=== PATIENT | female | born 1985 | race Caucasian/White ===

== ENCOUNTER 2021-05-29 12:04 | Outpatient (CLI) | payer BC, SELFPAY ==
--- NOTE | ~2021-05-29 | US_ITS ---
US OB BPP wo non-stress DATE: 05/29/2021 12:37 INDICATION: Nonreactive nonstress test in the office TECHNIQUE: Real-time imaging and Doppler analysis COMPARISON: None FINDINGS: Live liao intrauterine gestation, fetus in vertex presentation, longitudinal lie. Feta l heart rate of 152 bpm. Fundal placenta. Subjectively normal amount of amniotic fluid. BIOPHYSICAL PROFILE reported by safe technician: breathin out of 2 movement: 2 out of 2 tone: 2 out of 2 Amniotic fluid pocket: 2 out of 2 Total score: 8 out of 8 IMPRESSION: Normal biophysical profile score of 8 out of 8 Reviewed, dictated and finalized at [facility]. Reviewed, dictated and finalized at location A.
--- NOTE | 2021-05-29 12:39 | PC.NURSE ---
Called Dr. Yuan with BPP results. February D/C home.
== END 2021-05-29 12:40 | disposition home or self-care (01) ==
LOC: ANHOBOP 12:08 → ANHLDR 12:08
PROVIDERS: Visit Provider Obstetrics & Gynecology Gynecology
DX: O36.8990 Maternal care for other specified fetal problems, unspecified trimester, not applicable or unspecified (principal); Z3A.00 Weeks of gestation of pregnancy not specified
CPT/HCPCS: 76819; 99199

== ENCOUNTER 2021-06-04 05:00 | Inpatient (IN) | payer BC, SELFPAY ==
[2021-06-04] VITALS (93 sets, daily range): BP systolic 92–132; BP diastolic 38–81; PULSE 56–117; RESP 18; TEMP 36.1–36.7; O2SAT 91–100; BMI 24.5
[2021-06-04] MEDS: LACTATED RINGERS 1,000 ML 125 ML IV CONT ×2 (05:54→09:22)
[2021-06-04] MEDS: OXYTOCIN 30 UNITS/NS 500 ML 30 UNITS/500 ML BAG IV CONT (05:55)
[2021-06-04 06:06] LABS: Basophils Absolute Auto 0.1 K/mm3 (0.0-0.1); Basophils Percent Auto 0.6 % (0.2-1.2); Eosinophils Absolute Auto 0.2 K/mm3 (0-0.3); Eosinophils Percent Auto 2.5 % (0-4.4); Hematocrit 35.4 % (37.0-47.0); Hemoglobin 11.4 g/dL (12.0-15.0); Immature Granulocyte Absolute 0.06 K/mm3 (0.00-0.031); Immature Granulocyte Percent A 0.6 % (0-0.5); Lymphocytes Absolute Auto 0.98 K/mm3 (0.9-3.2); Lymphocytes Percent Auto 10.5 % (18.3-44.2); Mean Corpuscular HGB Conc 32.2 g/dl (32-36); Mean Corpuscular Hemoglobin 28.1 pg (26-34); Mean Corpuscular Volume 87.4 fl (80-100); Mean Platelet Volume 9.9 fl (7.4-10.4); Monocytes Absolute Auto 0.7 K/mm3 (0.1-0.6); Monocytes Percent Auto 7.1 % (2.6-8.5); Neutrophils Absolute Auto 7.4 K/mm3 (1.3-6.7); Neutrophils Percent Auto 78.7 % (45.5-73.1); Platelet Count Result 279 k/mm3 (150-375); Red Blood Count 4.05 M/mm3 (4.2-5.4); Red Cell Distribution Width 13.8 % (11.5-14.5); White Blood Count 9.3 K/mm3 (4.5-10.0)
--- NOTE | 2021-06-04 08:23 | WPDOBADMIT ---
Obstetrics - Admit Note Admission Note: record reviewed. No pertinent additions to the history and/or any subsequent changes in the physical findings that are not consistent with the expected course of the were found. Additions to the history and/or subsequent changes in the physical findings follow. Here for MIL. Cervix 3-4/50/-2 AROM with clear fluid. FHTs reactive. Continue pitocin
[2021-06-04 08:36] LABS: Rapid Plasma Reagin Non-Reactive (NonReactive)
--- NOTE | 2021-06-04 08:55 | WPDANESEPPF ---
Anes - Initial Pre Proc Eval Date/Time: 06/04/21 08:55 Surgeon: Vianney Yuan MD Pre Op Diagnosis: Induction of Labor Patient Data Age: 36 Gender: F Height: 1.63 m Weight: 65 kg Last Vital Signs Pulse 67 06/04/21 08:46 BP 118/70 06/04/21 08:46 Allergies Allergy/AdvReac Type Severity Reaction Status Date / Time Sulfa (Sulfonamide Allergy Unknown RASH Verified 03/10/19 14:07 Antibiotics) Home Medications Medication Instructions Recorded Confirmed Type PNV cmb#95-ferrous fumarate-FA 1 tablet PO DAILY 05/10/21 05/10/21 History [] ustekinumab [Stelara] See Rx Instructions .ROUTE .COMPLEX 05/10/21 05/10/21 History valacyclovir [Valtrex] 500 mg PO DAILY 05/10/21 05/10/21 History Laboratory Tests 06/04/21 06/04/21 06/04/21 05:47 05:47 05:47 WBC 9.3 K/mm3 K/mm3 (4.5-10.0) RBC 4.05 M/mm3 L M/mm3 (4.2-5.4) Hgb 11.4 g/dL L g/dL (12.0-15.0) Hct 35.4 % L % (37.0-47.0) MCV 87.4 fl fl (80-100) MCH 28.1 pg pg (26-34) MCHC 32.2 g/dl g/dl (32-36) RDW 13.8 % % (11.5-14.5) Plt Count 279 k/mm3 k/mm3 (150-375) MPV 9.9 fl fl (7.4-10.4) Immature Gran % (Auto) 0.6 % H % (0-0.5) Neut % (Auto) 78.7 % H % (45.5-73.1) Lymph % (Auto) 10.5 % L % (18.3-44.2) [place] % (Auto) 7.1 % % (2.6-8.5) Eos % (Auto) 2.5 % % (0-4.4) Baso % (Auto) 0.6 % % (0.2-1.2) Lymph # (Auto) 0.98 K/mm3 K/mm3 (0.9-3.2) [place] # (Auto) 0.7 K/mm3 H K/mm3 (0.1-0.6) Eos # (Auto) 0.2 K/mm3 K/mm3 (0-0.3) Baso # (Auto) 0.1 K/mm3 K/mm3 (0.0-0.1) Abs Immat Gran (auto) 0.06 K/mm3 H K/mm3 (0.00-0.031) Absolute Neuts (auto) 7.4 K/mm3 H K/mm3 (1.3-6.7) Absolute Nucleated RBC 0.0 K/mm3 K/mm3 (0.0-0.012) Nucleated RBC % 0.0 % % (0.0-0.2) RPR Non-reactive (NonReactive) Blood Type O Positive Antibody Screen Negative Patient hx anesthesia problems: none Family hx anesthesia problems: none [facility] Family History Family History (Updated 05/10/21 @ 15:32 by Valarie James RN) Sibling Hypothyroidism Mother Hypothyroidism Social History Social History Smoking status: Never smoker Substance use: never Gender identity (if verbalized by the patient): Female Spiritual care concerns: No Anes - Eval Final PreProcedure Day of Procedure 06/04/21 08:55 Patient weight: overweight Heart: regular rate and rhythm Lungs: clear to auscultation and normal air movement Airway: Mallampati scale class II Neurological: alert and oriented Last oral intake: >/= 8 hours ASA classification: II Emergent: no Anesthetic plan: proceed Anesthesia type and monitoring: regional epidural Informed Consent: The patient's anesthetic plan and its attendant risks and benefits were discussed with the patient/family/POA. Questions were solicited and answers provided to the satisfaction of the patient/family/POA.
--- NOTE | 2021-06-04 12:45 | PM.OBPRVD ---
OB - Delivery Note Procedure Delivery date: 06/04/21 Procedure: per Dr. John events: Labor Induction Intrapartal events: None Induction method: AROM and per pitocin protocol Delivery monitor: external FHT and external uterine Route of delivery: Laceration Description: Vaginal - 2nd Degree (Kwabena repaired) Delivery repair: vicryl (3-0) Specimen: No Quantitative Blood Loss (ml): 80 Anesthesia type: Epidural Disposition: floor Baby Date of : 06/04/21 Weeks of gestation at delivery: 39 presentation: vertex Placenta delivery description: Spontaneous (per Kwabena) cord vessel description: 3 Vessels score one minute: 8 score five minutes: 9
--- NOTE | 2021-06-04 12:47 | PM.OBDSVD ---
DS: Admitting Diagnosis Admitting Diagnosis 39 1/7 weeks MIL DS: Discharge Diagnosis Discharge Diagnosis (1) 39 weeks gestation of : Code(s): Z3A.39 - 39 weeks gestation of Status: Acute (2) (normal spontaneous vaginal delivery): Code(s): O80 - Encounter for full-term uncomplicated delivery Status: Acute OB - DS: Summary OB Procedures : Ultrasound OB Procedures Intrapartum: Spontaneous Vag Delivery OB Procedures: : None Peripartum Data Delivery Method: Natural Vaginal Laceration Description: Vaginal - 2nd Degree complications: none Status at Discharge Functional status at discharge: independent ambulation Overall status at discharge: patient is progressing back to baseline Time Spent with Patient Time attestation: Total time spent providing and/or coordinating discharge services: DS: Data Data Completed and Pending Labs on day of discharge: Labs from last 24 hours 06/04/21 06/04/21 06/04/21 05:47 05:47 05:47 WBC 9.3 RBC 4.05 L Hgb 11.4 L Hct 35.4 L MCV 87.4 MCH 28.1 MCHC 32.2 RDW 13.8 Plt Count 279 MPV 9.9 Immature Gran % (Auto) 0.6 H Neut % (Auto) 78.7 H Lymph % (Auto) 10.5 L [place] % (Auto) 7.1 Eos % (Auto) 2.5 Baso % (Auto) 0.6 Lymph # (Auto) 0.98 [place] # (Auto) 0.7 H Eos # (Auto) 0.2 Baso # (Auto) 0.1 Abs Immat Gran (auto) 0.06 H Absolute Neuts (auto) 7.4 H Absolute Nucleated RBC 0.0 Nucleated RBC % 0.0 RPR Non-reactive Blood Type O Positive Antibody Screen Negative Discharge Plan Discharge Attending physician on discharge: Vianney Yuan Discharging Clinician: Vianney Yuan Anticipated Discharge Date/Time: 06/06/21 12:48 Patient Disposition: Home, Self-Care Activity: may shower and pelvic rest Diet: regular Patient Instructions: Antibiotic Form Stand Alone Forms: General Discharge Information Follow-up/Referrals: Vianney Yuan MD [Physician] - 6 Weeks Discharge Medications: Continued valacyclovir [Valtrex] 500 mg Tablet 500 mg PO DAILY RF: 0 Stelara 45 mg/0.5 mL Syringe See Rx Instructions .ROUTE .COMPLEX RF: 0 PNV cmb#95-ferrous fumarate-FA [] 28 mg iron- 800 mcg Tablet 1 tablet PO DAILY RF: 0 Date of admission: 06/04/21 05:00 Primary Care Provider: PHYSICIAN,BUSINESS OBJECTS DEVELOPER Admitting Provider: Vianney Yuan Attending physician on admission: Vianney Yuan Condition: Stable Care Plan Goals: Vasectomy done waiting for count
[2021-06-04] MEDS: OXYTOCIN 30 UNITS/NS 500 ML 30 UNITS/500 ML BAG 125 UNITS IV CONT (13:04)
--- NOTE | 2021-06-04 15:43 | PC.NURSE ---
Patient transferred to post room # 286 per wheelchair. Support person present. Oriented to unit, room, information board, rooming in, admission packet and security measures. Patient verbalizes understanding.
[2021-06-04] MEDS: IBUPROFEN 600 MG TABLET PO (20:08)
[2021-06-05] VITALS: BP 119/74; PULSE 78; RESP 18; TEMP 36.7
[2021-06-05 03:29] VITALS: BP 108/68; PULSE 71; RESP 18; TEMP 36.7
[2021-06-05 05:56] LABS: Hematocrit 33.7 % (37.0-47.0); Hemoglobin 10.6 g/dL (12.0-15.0)
--- NOTE | 2021-06-05 07:30 | PC.NURSE ---
Patient was given the opportunity to view the discharge video Mother & Baby Care, The First Two Weeks and to ask questions. Patient declined viewing the video and has been given the mother/baby guide for home reference.
--- NOTE | 2021-06-05 07:54 | PM.OBPNVD ---
OB - PN: Subj Subjective Date/time seen: 06/05/21 07:54 Patient comments: no complaints and pain well controlled baby status: doing well OB - PN: Obj Data Labs CBC & Chem 7: 06/05/21 03:21 Labs: Laboratory Results - last 24 hr 06/04/21 06/04/21 06/05/21 05:47 05:47 03:21 Hgb 10.6 L Hct 33.7 L RPR Non-reactive Blood Type O Positive Antibody Screen Negative OB - PN A/P Plan day: 1 Plan: routine care, discharge home and follow up 6 weeks Time Spent With Patient Time: Total time spent is greater than 50% in coordination of care (as documented) at patient's floor/unit and/or counseling patient: Exam : Bimanual exam- vagina & uterus: other (Uterus firm, nt @U)
[2021-06-05] MEDS: BENZOCAINE 20% AER SPR (*SP) 56 GM CAN 1 SPRAY TOPICAL (07:59)
[2021-06-05] MEDS: DOCUSATE SODIUM 100 MG CAPSULE PO (07:59)
[2021-06-05] MEDS: WITCH HAZEL 40 PADS 1 PAD TOPICAL (07:59)
[2021-06-05] MEDS: IBUPROFEN 600 MG TABLET PO (07:59)
[2021-06-05 08:00] VITALS: BP 116/73; PULSE 82; RESP 18; TEMP 36.4
--- NOTE | 2021-06-05 08:37 | PC.NURSE ---
Self care and infant care discharge instructions given including follow up visit date and time. Pt. verbalized understanding. No questions or concerns voiced. Very pleasant and cooperative.
--- NOTE | 2021-06-05 09:17 | WPDANLDPN2 ---
Anes-Prog Note L&D Date/Time: 06/05/21 09:17 Comfortable throughout: labor and delivery Neuraxial method: epidural Epidural/Spinal procedure site: clean & non-tender Neuro status: Neuro function grossly intact. Cardiovascular status: normal Respiratory status: normal Airway patency: baseline Mental status: baseline Post-Op hydration status: normal Vital Signs: Last Vital Signs Temp 36.4 C L 06/05/21 08:00 Pulse 82 06/05/21 08:00 Resp 18 06/05/21 08:00 BP 116/73 06/05/21 08:00 Pulse Ox 98 06/04/21 12:20 Pain score (VAS): 0 I/O: Intake & Output 06/04/21 06/05/21 06/05/21 23:59 07:59 15:59 Intake Total 1000 Output Total 75 Balance 925 Post-procedural complaints: none Patient feedback: Patient satisfied with anesthetic care.
[2021-06-05 12:10] VITALS: BP 121/75; PULSE 98; RESP 16; TEMP 36.4; O2SAT 100
[2021-06-07 10:24] VITALS: BP 118/79; PULSE 94; RESP 16; TEMP 37.3
== END 2021-06-05 13:25 | disposition home or self-care (01) | DRG 807 ==
LOC: ANHLDR 12:49 → ANHOB2 15:47
PROVIDERS: Admitting Provider Obstetrics & Gynecology Gynecology; Visit Provider Obstetrics & Gynecology Gynecology
DX: O69.81X0 Labor and delivery complicated by cord around neck, without compression, not applicable or unspecified (principal); Z37.0 Single live birth; O70.1 Second degree perineal laceration during delivery; Z3A.39 39 weeks gestation of pregnancy
CPT/HCPCS: 36415; 85014; 85018; 85025; 86592; 86850; 86900; 86901; A9270; J2590; J2795; J7120

== ENCOUNTER 2025-03-03 02:48 | Inpatient (IN) | payer BC, SELFPAY ==
[2025-03-03] VITALS (21 sets, daily range): BP systolic 104–138; BP diastolic 58–104; PULSE 53–104; RESP 12–18; TEMP 36.1–36.6; O2SAT 95–100; BMI 20.2
--- NOTE | ~2025-03-03 | XR_ITS ---
EXAMINATION: XR abdomen/kub 1V DATE: 03/04/2025 08:17 INDICATION: Small bowel obstruction TECHNIQUE: A supine view of the abdomen on 2 radiographs was obtained. COMPARISON: None. FINDINGS: Moderate amount of clonic gas and stool. No dilated loops of gas-filled bowel to suggest obstruction. Lung bases are clear. Heart size is normal. Bones and soft tissues are unremarkable. IMPRESSION: 1. Normal bowel gas pattern. Reviewed, dictated and finalized at location A.
--- NOTE | ~2025-03-03 | CT_ITS ---
CT of the Abdomen and Pelvis: Indication: Abdominal pain, Crohn's disease Technique: 2.5 mm axial scans were obtained through the abdomen and pelvis following intravenous adm inistration of 100 cc of Omnipaque 350. Dose reduction technique was used on this scan by utilizing a utomated exposure control and iterative reconstruction technique. The dose-length product (DLP) was 2 00.39 mGy-cm. Findings: Scans through the lung bases are unremarkable. The liver, spleen, pancreas, gallbladder, adrenals and kidneys are within normal limits. No evidence of aortic aneurysm. No lymphadenopathy. There is circumferential wall thickening of a segment of mid to distal ileum in the pelvis. There is distention of multiple small bowel loops proximal to this level. Large bowel are decompressed. Images through the pelvis were performed. Urinary bladder unremarkable. No adnexal mass seen. Small a mount of pelvic ascites present. Impression: Wall thickening of a segment of mid to distal ileum, compatible with active Crohn's disease, with ass ociated small bowel obstruction with dilatation of upstream fluid-filled small bowel loops. Small amount of pelvic ascites. Reviewed, dictated and finalized at [facility]. Impression: Wall thickening of a segment of mid to distal ileum, compatible with active [employer] h[employer]'s disease, with associated small bowel obstruction with dilatation of upstre am fluid-filled small bowel loops. Small amount of pelvic ascites.
--- NOTE | ~2025-03-03 | XR_ITS ---
EXAMINATION: XR abdomen/kub 1V DATE: 03/05/2025 10:01 INDICATION: Small bowel obstruction TECHNIQUE: A supine view of the abdomen on 2 radiographs was obtained. COMPARISON: 03/04/2025 FINDINGS: Small amount of stool the rectum. Small amount of gas in the proximal colon. No dilated gas-filled lo ops of small bowel to suggest obstruction. No suspicious calcifications in the abdomen or pelvis. [place] g bases are clear. Heart size is normal. IMPRESSION: 1. Normal bowel gas pattern. Reviewed, dictated and finalized at location A.
--- NOTE | ~2025-03-03 | XR_ITS ---
XR abdomen gastric tube insert INDICATION: Evaluate NG tube position. TECHNIQUE: Limited KUB perform for evaluating NG tube . COMPARISON: No prior studies for comparison. FINDINGS: NG tube tip in the stomach. Visualized bowel gas pattern is unremarkable.There is residual contrast in nondilated right renal collecting system and proximal ureter. IMPRESSION: 1: NG tube tip in the stomach. Reviewed, dictated and finalized at location A.
--- OUTSIDE RECORDS SUMMARY | 2025-03-03 02:50 | XMS_ITS | Clinical Summary ---
Author Organization [facility] Address [address] [place] [address] Care Team Providers Care Dental Prosthetist Name Role Phone ArichristadimasleonilaAntolin Primary Care Provider + Allergies Active Allergy Reactions Criticality Noted Date Comments Sulfa Antibiotics Unknown 12/16/2007 Medications clobetasol 0.05 % ointment Apply to affected areas on hands twice daily until rash resolves. Avoid face, groin, axilla. 10/26/2018 Active valACYclovir 500 MG tablet Take 1 tablet (500 mg total) by mouth daily. 12/31/2019 Active ustekinumab 90 MG/ML injection Inject 1 mL (90 mg total) into the skin. 02/23/2020 Active budesonide EC (ENTOCORT EC) 3 MG capsule 01/04/2022 Active Active Problems Problem Noted Date Diagnosed Date Vitamin D deficiency 08/29/2020 Heart palpitations 03/15/2020 High risk medications (not anticoagulants) long- term use 06/03/2019 Overview (02/22/2021): Last Assessment & Plan: High risk medications: As with all patients taking immunosuppressive biologic therapies or immunomodulators, we provide a balanced discussion on benefits and risks associated with these medications. Regarding potential risks, we employ a strategy of active monitoring for medication related toxicities. Toxicities and risks discussed in monitoring include, but are not limited to the following: infusion reactions including anaphylaxis; bacterial, viral and fungal infections; pancreatitis; heart failure; neurologic reactions; hematologic and solid tumors malignancy including an increased risk of lymphoma and skin cancers; bone marrow toxicity including anemia, lymphopenia and immune suppression; hepatotoxicity and potential renal toxicity. Patients are actively assessed through routine laboratories (Q4 month or more frequently) which I personally review and are encouraged to contact us with any questions regarding new symptom development. Last Assessment & Plan: High risk medications: As with all patients taking immunosuppressive biologic therapies or immunomodulators, we provide a balanced discussion on benefits and risks associated with these medications. Regarding potential risks, we employ a strategy of active monitoring for medication related toxicities. Toxicities and risks discussed in monitoring include, but are not limited to the following: infusion reactions including anaphylaxis; bacterial, viral and fungal infections; pancreatitis; heart failure; neurologic reactions; hematologic and solid tumors malignancy including an increased risk of lymphoma and skin cancers; bone marrow toxicity including anemia, lymphopenia and immune suppression; hepatotoxicity and potential renal toxicity. Patients are actively assessed through routine laboratories (Q4 month or more frequently) which I personally review and are encouraged to contact us with any questions regarding new symptom development. Crohn's disease of small int estine with complication ([facility]) 03/03/2018 Overview (02/22/2021): Year of diagnosis: 2015 Year symptoms began: 2016 Phenotype: Penetrating (B3) without perianal disease. Distribution: ileocolonic (L3) without upper GI disease (L4). Extraintestinal manifestations: inflammatory arthropathy Complications: vesicouterine plegmon, ileovaginal fistula 2016 Prior treatments: remicade, entyvio, azathioprine Current treatment: stelara q8 weeks (started 03/2019) Prior surgeries: none Endoscopies: Colonoscopy 06/2018 Crohn's disease with ileitis. stricture at the appendiceal orifice. Dilated. the recto-sigmoid colon and ascending colon are normal PATH: Large intestine, ileocecal valve, biopsy Chronic active colitis (cryptitis and architectural distortion), Large intestine, ascending colon, biopsy Chronic active colitis (focal cryptitis and mild architectural distortion), Large intestine, rectosigmoid colon, biopsy Colonic mucosa with lamina propria muciphages No active or chronic inflammation identified Imaging: MRE 07/2019 No significant change in extent of disease, including chronic fibro-stenosing disease involving the terminal ileum. No fistula or fluid collection seen. No evidence of perianal disease IBD HEALTH MAINTENANCE HBV vaccination status: Hepatitis B immune Last Assessment & Plan: History of penetrating crohn's diagnosed 2015. Prior medications include remicade, entyvio, and azathiprine. Was started on stelara 03/2019. She reports this is working well for her. She has a history of plegmon noted on MR in 2016 with possible fistula. Repeat MRE in July did not demonstrate any fistulas. She is having one formed stool daily. Denies abdominal pain. Reports her energy level is improved as well. -continue stelara, next dose due September 27 -health maintenance: prevnar 2017, TB negative 02/2019, she is hep B immune, will plan for pneumovax and flu shot today Year of diagnosis: 2015 Year symptoms began: 2015 Phenotype: Penetrating (B3) without perianal disease. Distribution: ileocolonic (L3) without upper GI disease (L4). Extraintestinal manifestations: inflammatory arthropathy Complications: vesicouterine plegmon, ileovaginal fistula 2016 Prior treatments: remicade, entyvio, azathioprine Current treatment: stelara q8 weeks (started 03/2019) Prior surgeries: none Endoscopies: Colonoscopy 06/2018 Crohn's disease with ileitis. stricture at the appendiceal orifice. Dilated. the recto-sigmoid colon and ascending colon are normal PATH: Large intestine, ileocecal valve, biopsy Chronic active colitis (cryptitis and architectural distortion), Large intestine, ascending colon, biopsy Chronic active colitis (focal cryptitis and mild architectural distortion), Large intestine, rectosigmoid colon, biopsy Colonic mucosa with lamina propria muciphages No active or chronic inflammation identified Imaging: MRE 04/2020 Multiple areas of mild segmental wall thickening involving the distal and terminal ileum with several intervening segments of sparing, consistent with skip lesions, only few of which show active inflammation. Compared to the prior study, improvement in active inflammation of the terminal ileum. Multiple areas of mild dilatation proximal to luminal narrowing are again seen, none of which meet criteria for strictures. MRE 07/2019 No significant change in extent of disease, including chronic fibro-stenosing disease involving the terminal ileum. No fistula or fluid collection seen. No evidence of perianal disease IBD HEALTH MAINTENANCE HBV vaccination status: Hepatitis B immune Last Assessment & Plan: History of penetrating crohn's diagnosed 2015. Prior medications include remicade, entyvio, and azathiprine. Was started on stelara 03/2019. She reports this is working well for her. She has a history of plegmon noted on MR in 2016 with possible fistula. Repeat MRE in July did not demonstrate any fistulas. She is having one formed stool daily. Denies abdominal pain. Reports her energy level is improved as well. -continue stelara, next dose due September 27 -health maintenance: prevnar 2017, TB negative 02/2019, she is hep B immune, will plan for pneumovax and flu shot today Resolved Problems Problem Noted Date Diagnosed Date Resolved Date Healthcare maintenance 09/29/201906/30 Immunizations Immunization Administration Dates Next Due Fluzone 6 Months+ Quad (0.5 mL Prefilled Syringe ) 08/29/2020 Influenza (Generic) 07/17/2021 Influenza Adult (Generic) 08/01/2022,09/06/2019 MODERNA COVID-19 BIVALENT (12+), MRNA, LNP-S, PF 08/01/2022 MODERNA COVID-19 (SILVER LAP MACHINE TENDER KRYSTEN ALEXANDRE), MRNA, LNP-S, PF, 50 MCG/ 0.25 ML DOSE 09/27/2021 Pneumococcal (Pneumovax 23) 09/06/2019 Pneumococcal (Prevnar 13) 06/19/2017 Tdap (Generic) 03/20/2021 Family History Medical History Relation Comments Heart Disease Father irregular hb Father [facility] Maternal Grandfather x3 Stroke Maternal Grandfather x3 CHF Maternal Grandmother Coronary artery disease Maternal Grandmother Heart Disease Maternal Grandmother Hypertension Maternal Grandmother ICD Maternal Grandmother VA Maternal Grandmother VA Maternal Uncle 1 Early Maternal Uncle 2 Heart attack at 43 Hypertension Mother Thyroid Disease Mother Coronary artery disease Paternal Grandfather VA Paternal Grandfather tia Paternal Grandfather Osteoporosis Paternal Grandmother afib Paternal Grandmother ablation afib Paternal Uncle Thyroid Disease Sister Relation Status Comments Father Alive Maternal Grandfather (Age 57) Maternal Grandmother Maternal Uncle 1 Maternal Uncle 2 Mother Alive Paternal Grandfather Paternal Grandmother Alive Paternal Uncle Sister Social History Tobacco Use Types Packs/Day Years Used Date Smoking Tobacco: Never Smokeless Tobacco: Never Tobacco Cessation:Counseling Given: Not Answered Alcohol Use Standard Drinks/Week Comments Yes 0 (1 standard drink = 0.6 oz pur e alcohol) AUDIT-C Answer Date Recorded Frequency of Alcohol Consumption Monthly or less 02/23/2020 Average Number of Drinks 1 or 2 020 Frequency of Binge Drinking Not on file 0503/2020 PHQ-2 Answer Date Recorded Patient Health Questionnaire-2 Score 0 07/05/2024 Comments No Sex and Gender Information Value Date Recorded Sex Assigned at Not on file 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 Gender Identity Not on file Sexual Orientation Not on file Occupation Industry Job Start Date Job End Date Not on file Not on file Not on file Not on file Last Filed Vital Signs Vital Sign Reading Time Taken Comments Blood Pressure 98/62 07/05/2024 8:25 AM CDT Pulse 83 07/05/2024 8:25 AM CDT Temperature 36.4 C (97.5 F) 07/05/2024 8:25 AM CDT Respiratory Rate 16 07/05/2024 8:25 AM CDT Oxygen Saturation 97% 07/05/2024 8:25 AM CDT Inhaled Oxygen Concentration - - Weight 54.1 kg (119 lb 3.2 oz) 07/05/2024 8:25 A M CDT Height 162.6 cm (5' 4 ) 07/05/2024 8:25 AM CDT Body Mass Index 20.46 07/05/2024 8:25 AM CDT Plan of Treatment Upcoming Encounters Date Type Department Care Team (Late st Contact Info) Description 07/07/2025 1:20 PM CDT Office Visit [facility] [address] [phone] Antolin Danielson, [address] [place] [id number] Health Maintenance Due Date Last Done Comments Cervical Cancer Screening Pap with HPV Testing (Age 30 to 64) Every 5 Years 2016 Annual Physical 10/24/2023 10/24/2022 Cervical Cancer Screening Pap Smear (Age 30 to 64) Every 3 Years 09/19/2024 09/19/2021 Cervical Cancer Screening with HPV 09/19/2024 PHQ-2 (Physician [place] ([place] 10/20/2024 07/05/2024 COVID-19 Vaccine ( season) 2025 08/01/2022, 09/27/2021, 01/06/2021, Additional history exists Postponed from 06/20/2024 (Going to Outside Clinic) DTaP, Tdap and Td Vaccines (2 - Td or Tdap) 03/20/2031 03/20/2021 Hepatitis B Vaccines (1 of 3 - 19+ 3-dose series) 06/14/2047 Postponed from 2005 (Per Provider Recommendation) Hepatitis C Completed 03/11/2019 Pneumococcal Vaccine: Pediatrics (0 to 5 Years) and At-Risk Patients (6 to 49 Years) Aged Out 12/14/2024, 09/06/2019, 06/19/2017 No longer eligible based on patient's age to complete this topic HPV Vaccines Aged Out No longer eligi ble based on patient's age to complete this topic Meningococcal B Vaccine Aged Out No l onger eligible based on patient's age to complete this topic Meningococcal Vaccine Aged Out No juan marcos eligible based on patient's age to complete this topic RSV Immunizations Under 20 Months Aged Out No longer eligible based on patient's age to complete this topic Procedures Procedure Name Priority Date/Time Associated Diagnosis Comments OUTSIDE CYTOPATH CERV/VAG IN TERPRET (PAP) (SCAN ORDER) 09/19/2021 from Last 3 Months or Most Recently Relevant to Health Maintenance Results * PAP SMEAR (09/19/2021) 09/19/2021 [facility] Scanned SCANNING Final Resu lt from Last 3 Months or Most Recently Relevant to Health Maintenance Insurance [address] [facility] Care Teams Dental Prosthetist Relationship Specialty Start Date End Date Antolin Danielson DO [address] [place] [id number] PCP - General FAMILY PRACTICE 02/22/20
--- OUTSIDE RECORDS SUMMARY | 2025-03-03 02:50 | XMS_ITS | Clinical Summary ---
Author Organization [facility] Address [address] [place] [address] Care Team Providers Care Emergency Man Name Role Phone Nomi Kelly MD Unavailable Antolin Danielson DO Primary Care Provide r Allergies Active Allergy Reactions Criticality Noted Date Comments Sulfa (Sulfonamide Antibiotics) Unknown 05/22 Medications clobetasol (TEMOVATE) 0.05 % ointment Apply to affected areas on hands twice daily until rash resolves. Avoid face, groin, axilla. 60 g 11 9 Active pimecrolimus (ELIDEL) 1 % cream Apply to affected areas of face twice daily until rash resolves. 30 g 11 9 Active valACYclovir (VALTREX) 500 mg tablet TK 1 T PO D 0 Active dicyclomine (BENTYL) 10 mg capsule Take 1 capsule (10 mg total) by mouth 4 (four) times a day before meals and nightly Take with meals and at bedtime 120 capsule 2 4 Active Stelara injectionIndicati ons:Crohn's disease of small intestine with complication (HCC) INJECT 1 SYRINGE UNDER THE SKIN EVERY 6 WEEKS 1 mL 3 5 Active Active Problems Problem Noted Date Diagnosed Date Menstrual cramps 12/15/2024 Assessment & Plan (12/15/2024 2:00 PM SCREEN TENDER HELPER): The patient indicates that she her GI symptoms are always worse around her menstrual cycle. Even though her has had a vasectomy, she may want to consider control to regulate her symptoms. Progesterone only pills would be sufficient. She can use more Levsin or Bentyl around the time of her menses. Healthcare maintenance 09/29/2019 High risk medications (not anticoagulants) long- term use 06/03/2019 Assessment & Plan (12/15/2024 2:00 PM SCREEN TENDER HELPER): We will offer her Prevnar 20 today. She is eligible for Shingrix given her immunosuppression. We would recommend that she continue close follow-up with her care team. Assessment & Plan (09/06/2019 3:24 PM SCREEN TENDER HELPER): High risk medications: As with all patients [...] new symptom development. Crohn's disease of small intestine with complica tion 03/03/2018 Overview (12/15/2024): Year of diagnosis: 2016 Year symptoms began: 2016 Phenotype: Penetrating (B3) without perianal disease. Distribution: ileocolonic (L3) without upper GI disease (L4). Extraintestinal manifestations: inflammatory arthropathy Complications: vesicouterine plegmon, ileovaginal fistula 2016 Prior treatments: remicade, entyvio, azathioprine Current treatment: stelara q6 weeks (started 03/2019, escalated to every 6 weeks late 2023) Prior surgeries: none Endoscopies: Colonoscopy 10/2023: Simple Endoscopic Score for Crohn's Disease: 0, mucosal inflammatory changes secondary to Crohn's disease, in remission Colonoscopy 06/2018 Crohn's disease with ileitis. stricture [...] active or chronic inflammation identified Imaging: MRE 10/2023 Stable appearance of chronic stricturing Crohn's disease involving the abdominal ilium with improved upstream dilatation. No acute inflammation or complication identified MRE 04/2020 Multiple areas of mild segmental [...] MAINTENANCE HBV vaccination status: Hepatitis B immune Assessment & Plan (12/15/2024 2:02 PM SCREEN TENDER HELPER): The patient reports that she is no longer having any anticipatory symptoms now that she is on every 6 week Stelara. We would like to continue this for the foreseeable future. She will get safety labs again in February. As the majority of her disease is best estimated through imaging, we would think about repeating an MR enterography after she has had a few more doses at the 6 week interval (February or March. If the patient starts to lose response to Stelara, she may still do well on Skyrizi. Assessment & Plan (09/06/2019 3:24 PM SCREEN TENDER HELPER): History of penetrating crohn's diagnosed 2015. Prior [...] plan for pneumovax and flu shot today Encounters Date Type Department Care Team Description 12/17/2024 Documentation [facility] Gastroenterology [address] [facility] Advanced Medicine 12th [place] [address] [place] [address] Sade Kate RN Treatment Plan Update (12/14/2024 rov) 12/14/2024 8:30 AM SCREEN TENDER HELPER Office Visit [facility] Gastroenterology [address] [place] [address] Medical Office Building [address] [place] [address] Liana Redding, SETH Crohn's disease of small intestine with complication (HCC) (Primary Dx); High risk medications (not anticoagulants) long-term use; Menstrual cramps from Last 3 Months Immunizations Immunization Administration Dates Next Due Influenza, Quadrivalent, Candace l Culture-based MDCK, Preservative Free, Antibiotic Free, Intramuscular 09/06/2019 Pneumococcal Conjugate PCV 13 06/19/2017 Pneumococcal Conjugate Pcv20 12/14/2024 Pneumococcal Polysaccharide PPV23 09/06/2019 Medical History Medical History Date Comments Crohn's disease (HCC) Anemia Family History Medical History Relation Name Comments Hypertension Mother Family history of hypertension - (Added by TW Conv) Relation Name Status Comments Mother Social History Tobacco Use Types Packs/Day Years Used Date Smoking Tobacco: Never Smokeless Tobacco: Never Tobacco Cessation:Counseling Given: Not Answered Alcohol Use Standard Drinks/Week Comments Never 0 (1 standard drink = 0.6 oz pur e alcohol) OASIS D0700: Social Isolation Answer Da te Recorded Frequency of experiencing loneliness or isolatio n Never 12/01/2023 AUDIT-C Answer Date Recorded Q1: How often do you have a drink containing alcohol? Never 09/06/2024 Q2: How many drinks containi ng alcohol do you have on a typical day when you are drinking? Patient does not drink Q3: How often do you have si x or more drinks on one occasion? Never 09/06/2024 Personal Safety Answer Date Recorded Have you ever been in or are you currently in a harmful physical or emotional relationship or is someone making you feel afraid or unsafe? Denies 11/17/2023 Comments No Sex and Gender Information Value Date Recorded Sex Assigned at Not on file Legal Sex Female 10:10 PM CDT Gender Identity Not on file Sexual Orientation Not on file Obstetrics History Last Filed Vital Signs Vital Sign Reading Time Taken Comments Blood Pressure 107/75 12/14/2024 8:25 AM SCREEN TENDER HELPER Pulse 76 12/14/2024 8:25 AM SCREEN TENDER HELPER Temperature 36.7 C (98.1 F) 09/06/2024 10:41 AM SCREEN TENDER HELPER Respiratory Rate 17 12/15/2023 10:50 AM SCREEN TENDER HELPER Oxygen Saturation 98% 12/14/2024 8:25 AM SCREEN TENDER HELPER Inhaled Oxygen Concentration - - Weight 55.3 kg (122 lb) 12/14/2024 8:25 AM SCREEN TENDER HELPER Height 162.6 cm (5' 4 ) 12/14/2024 8:25 AM SCREEN TENDER HELPER Body Mass Index 20.94 12/14/2024 8:25 AM SCREEN TENDER HELPER Plan of Treatment Health Maintenance Due Date Last Done Comments Cervical Cancer Screening 1986 Depression Screening 1986 Varicella Vaccines (1 of 2 - 13+ 2-dose series) 1999 Hepatitis B Screening 2004 Regular Well Visit/Exam 18-64 2004 Influenza Vaccine (Season Ended) 2025 07/01/2023, 08/01/2022, 07/17/2021, Additional history exists DTaP/Tdap/Td Vaccine (2 - Td or Tdap) 03/20/2031 03/20/2021 Hepatitis C Screening Completed 03/11/2019 Pneumococcal vaccine <65 Aged Out 025, 09/06/2019, 06/19/2017 No longer eligible based on patient's age to complete this topic HPV Vaccines Aged Out No longer eligi ble based on patient's age to complete this topic Procedures Procedure Name Priority Date/Time Associated Diagnosis Comments HEPATITIS C ANTIBODY Routine 03/11/2019 11:00 AM CDT Crohn's disease of small intestine with complication (HCC) High risk medication use from Last 3 Months or Most Recently Relevant to Health Maintenance Results * Hepatitis C antibody (03/11/2019 11:00 AM CDT) Hep C Ab Non-Reacti ve Non-Reacti ve [facility] Comment:Testing performed by : [facility], [facility] [facility], [place]., [address] Blood specimen (specimen) 03/11/2019 11:00 AM CDT 03/11/2019 1:21 PM CDT Narrative [facility] - 03/11/2019 2:07 PM CDT To be drawn through the [facility] infusion center when pt arrives for infusion 03/11. Mandeep Pena MD PhD LAB MICROBIOLOGY - G ENERAL ORDERABLES Final Result [facility] [id number] [facility] Department [place] [address] from Last 3 Months or Most Recently Relevant to Health Maintenance Insurance [facility] FEDERAL Advance Directives For more information, please contact: [phone] * Full Code (Latest Code Status on File) Date Activated Date Inactivated Comments 11/17/2023 11:50 AM 11/17/2023 6:58 PM * Full Code Date Activated Date Inactivated Comments 07/17/2018 9:43 AM 07/17/2018 2:15 PM Care Teams Emergency Man Relationship Specialty Start Date End Date Antolin Danielson DO [address] [place] [id number] PCP - General 05/01/20 Nomi Kelly MD 06/18/17
--- OUTSIDE RECORDS SUMMARY | 2025-03-03 02:50 | XMS_ITS | Encounter Summary ---
Author Organization [facility] Address [address] [place] [address] Phone Care Team Providers Care Refrigeration Houseman Name Role Phone Nomi Kelly MD Unavailable Antolin Danielson DO Primary Care Provide r Encounter Details Date Type Department Care Team (Late st Contact Info) Description 12/12/2020 Orders Only [facility] Scanning, Provider Social History Tobacco Use Types Packs/Day Years Used Date Smoking Tobacco: Never Smokeless Tobacco: Never Alcohol Use Standard Drinks/Week Comments Never 0 (1 standard drink = 0.6 oz pur e alcohol) AUDIT-C Answer Date Recorded Frequency of Alcohol Consumption Never 04/12/2019 Average Number of Drinks Not on file 019 Frequency of Binge Drinking Not on file 03/21 Comments No Sex and Gender Information Value Date Recorded Sex Assigned at Not on file Legal Sex Female 10:10 PM CDT Gender Identity Not on file Sexual Orientation Not on file documented as of this encounter Plan of Treatment Not on file documented as of this encounter Procedures Procedure Name Priority Date/Time Associated Diagnosis Comments SCAN - LABS 12/12/2020 documented in this encounter Results * SCAN - LABS (12/12/2020) us Provider Scanning Final Result documented in this encounter Visit Diagnoses Not on filedocumented in this encounter Additional Health Concerns Infection Onset Date Last Indicated Resolved Time COVID: Suspected 10/09/2022 10/09/202210/0910/09/2022 9:26 PM SCRAP IRON CUTTER Influenza, adult 10/09/2022 10/09/2022 10/16/2022 3:05 AM SCRAP IRON CUTTER documented as of this encounter Care Teams Refrigeration Houseman Relationship Specialty Start Date End Date Antolin Danielson DO [address] [place] [address] PCP - General 05/01/20 Nomi Kelly MD 06/18/17 documented as of this encounter
--- OUTSIDE RECORDS SUMMARY | 2025-03-03 02:50 | XMS_ITS | Clinical Summary ---
Author Organization [facility] Address [address] [place] [phone] Phone Care Team Providers Care Installment Agent Name Role Phone Unavailable Primary Care Provider Unavailabl e Social History Tobacco Use Types Packs/Day Years Used Date Smoking Tobacco: Never Assessed Comments Unknown Sex and Gender Information Value Date Recorded Sex Assigned at Not on file Legal Sex Female 11:02 AM CDT Gender Identity Not on file Sexual Orientation Not on file Plan of Treatment Health Maintenance Due Date Last Done Comments DTAP/TDAP/TD VACCINES (1 - Tdap) 2005 HEPATITIS B VACCINES (1 of 3 - 19+ 3-dose series) 2005 HPV/Cotest (21-29) 2007 CERVICAL CANCER SCREENING 2016 HPV/Cotest (30-65) 2016 PAP SMEAR 2016 INFLUENZA VACCINE (#1) 2024 0, 09/06/2019 HPV VACCINES Aged Out No longer eligi ble based on patient's age to complete this topic Insurance FEDERAL
--- OUTSIDE RECORDS SUMMARY | 2025-03-03 02:50 | XMS_ITS | Encounter Summary ---
Author Organization [facility] Address [facility] [place] [address] Care Team Providers Care Servicenow Administrator Name Role Phone Antolin Danielson DO Primary Care Provider + Encounter Details Date Type Department Care Team (Late st Contact Info) Description 01/17/2023 Auramistt Message Enc [facility] Family & Internal Medicine [facility] [address] [place] [address] Antolin Danielson DO [address] [place], [place] [id number] Ear issue Social History Tobacco Use Types Packs/Day Years Used Date Smoking Tobacco: Never Smokeless Tobacco: Never Alcohol Use Standard Drinks/Week Comments Yes 0 (1 standard drink = 0.6 oz pur e alcohol) AUDIT-C Answer Date Recorded Frequency of Alcohol Consumption Monthly or less 02/23/2020 Average Number of Drinks 1 or 2 020 Frequency of Binge Drinking Not on file 03/2020 PHQ-2 Answer Date Recorded Patient Health Questionnaire-2 Score 0 10/24/2022 Comments No Sex and Gender Information Value Date Recorded Sex Assigned at Not on file Legal Sex Female 2:07 PM [employer]MER [employer] Gender Identity Not on file Sexual Orientation Not on file Occupation Industry Job Start Date Job End Date Not on file Not on file Not on file Not on file documented as of this encounter Progress Notes * Jose Byrd MD - 01/20/2023 5:03 PM CDT Not sure why this was sent to my inbox on Friday, can you address please. documented in this encounter Plan of Treatment Upcoming Encounters Date Type Department Care Team (Late st Contact Info) Description 07/07/2025 1:20 PM CDT Office Visit [facility] Family & Internal Medicine - [place] [address] [place] [address] Antolin Danielson DO [facility] [place] [address] documented as of this encounter Visit Diagnoses Not on filedocumented in this encounter Additional Health Concerns Assessment Noted Time PHQ-9 Depression Total Score: 0 02/23/20 20 8:07 AM CDT documented as of this encounter Care Teams Servicenow Administrator Relationship Specialty Start Date End Date Antolin Danielson DO [address] [place] [id number] PCP - General FAMILY PRACTICE 02/22/20 documented as of this encounter
--- OUTSIDE RECORDS SUMMARY | 2025-03-03 02:50 | XMS_ITS | Referral Summary ---
Author Organization [facility] Address [address] [place] [address] Care Team Providers Care Tractor Driver Name Role Phone Nomi Kelly MD Unavailable Antolin Danielson DO Primary Care Provide r Encounters Date Type Department Care Team Description 12/17/2024 Documentation [facility] Gastroenterology [address] [facility] 12th [place] [address] [place] [address] Sade Kate RN Treatment Plan Update (12/14/2024 rov) 12/14/2024 8:30 AM RETAIL EVENT ASSISTANT Office Visit [facility] Gastroenterology [facility] Medical Office Building [address] [place] [address] Liana Redding NP Crohn's disease of small intestine with complication (HCC) (Primary Dx); High risk medications (not anticoagulants) long-term use; Menstrual cramps from Last 3 Months Allergies Active Allergy Reactions Criticality Noted Date [...] 12/15/2024 Assessment & Plan (12/15/2024 2:00 PM RETAIL EVENT ASSISTANT): The patient indicates that she her GI [...] 06/03/2019 Assessment & Plan (12/15/2024 2:00 PM RETAIL EVENT ASSISTANT): We will offer her Prevnar 20 today. She is eligible for Shingrix given her immunosuppression. We would recommend that she continue close follow-up with her care team. Assessment & Plan (09/06/2019 3:24 PM RETAIL EVENT ASSISTANT): High risk medications: As with all patients [...] immune Assessment & Plan (12/15/2024 2:02 PM RETAIL EVENT ASSISTANT): The patient reports that she is no [...] Skyrizi. Assessment & Plan (09/06/2019 3:24 PM RETAIL EVENT ASSISTANT): History of penetrating crohn's diagnosed 2015. Prior [...] plan for pneumovax and flu shot today Immunizations Immunization Administration Dates Next Due Influenza, Quadrivalent, Candace l Culture-based MDCK, Preservative Free, Antibiotic Free, Intramuscular 09/06/2019 Pneumococcal Conjugate PCV 13 06/19/2017 Pneumococcal Conjugate Pcv20 12/14/2024 Pneumococcal Polysaccharide PPV23 09/06/2019 Social History Tobacco Use Types Packs/Day Years [...] on file Sexual Orientation Not on file Last Filed Vital Signs Vital Sign Reading Time Taken Comments Blood Pressure 107/75 12/14/2024 8:25 AM RETAIL EVENT ASSISTANT Pulse 76 12/14/2024 8:25 AM RETAIL EVENT ASSISTANT Temperature 36.7 C (98.1 F) 09/06/2024 10:41 AM RETAIL EVENT ASSISTANT Respiratory Rate 17 12/15/2023 10:50 AM RETAIL EVENT ASSISTANT Oxygen Saturation 98% 12/14/2024 8:25 AM RETAIL EVENT ASSISTANT Inhaled Oxygen Concentration - - Weight 55.3 kg (122 lb) 12/14/2024 8:25 AM RETAIL EVENT ASSISTANT Height 162.6 cm (5' 4 ) 12/14/2024 8:25 AM RETAIL EVENT ASSISTANT Body Mass Index 20.94 12/14/2024 8:25 AM RETAIL EVENT ASSISTANT Plan of Treatment Not on file Procedures Procedure Name Priority Date/Time Associated Diagnosis Comments HEPATITIS C ANTIBODY Routine 03/11/2019 11:00 AM CDT Crohn's disease of small intestine with complication (HCC) High risk medication use from Last 3 Months or Most Recently Relevant to Health Maintenance Results * Hepatitis C antibody (03/11/2019 11:00 AM CDT) Hep C Ab Non-Reacti ve Non-Reacti ve [facility] Comment:Testing performed by : [facility], [facility] [facility], [place]., [address] Blood specimen (specimen) 03/11/2019 11:00 AM CDT 03/11/2019 1:21 PM CDT Narrative [facility] - 03/11/2019 2:07 PM CDT To be drawn through the [facility] infusion center when pt arrives for infusion 03/11. us Mandeep Pena MD PhD LAB MICROBIOLOGY - G ENERAL ORDERABLES Final Result [facility] [id number] [facility]. [place] [address] from Last 3 Months or Most Recently Relevant to Health Maintenance Insurance [facility] Advance Directives For more information, please contact: [phone] * Full Code (Latest Code Status on File) Date Activated Date Inactivated Comments 11/17/2023 11:50 AM 11/17/2023 6:58 PM * Full Code Date Activated Date Inactivated Comments 07/17/2018 9:43 AM 07/17/2018 2:15 PM Care Teams Tractor Driver Relationship Specialty Start Date End Date Antolin Danielson DO [address] [place] [id number] PCP - General 05/01/20 Nomi Kelly MD 06/18/17
[2025-03-03 03:06] LABS: BEDSIDEPREGUCG Negative (Negative)
--- NOTE | 2025-03-03 03:09 | ED.GENADULT ---
HPI - General Adult General Chief complaint: Abdominal Pain Stated complaint: abd pain, n/v Time Seen by Provider: 03/03/25 02:55 History of Present Illness HPI narrative: This is a 39-year-old female with history of Crohn's disease presenting for abdominal pain. Pain started at 10 hours prior to arrival at 4:30 pm. Pain is a sharp spasm feeling that is diffuse throughout her abdomen, severe in intensity and can worse. She has had pain like this before in previous Crohn flares. It is associated with nausea vomiting. No diarrhea. No fevers. No chest pain or difficulty breathing. No urinary symptoms. Patient took dicyclomine without relief. Related Data Home Medications Medication Instructions Recorded Confirmed Last Taken Type vit no.95-ferrous 1 tablet PO DAILY 05/10/21 05/10/21 Unknown History fumarate 28 mg-folic acid 800 mcg tablet () ustekinumab 45 mg/0.5 mL See Rx Instructions .Route .COMPLEX 05/10/21 05/10/21 Unknown History subcutaneous syringe (Stelara) valacyclovir 500 mg tablet 500 mg PO DAILY 05/10/21 03/03/25 Unknown History (Valtrex) dicyclomine 10 mg capsule mg 03/03/25 Unknown History ergocalciferol (vitamin D2) 1,250 03/03/25 Unknown History mcg (50,000 unit) capsule ustekinumab 90 mg/mL subcutaneous mg subcut 03/03/25 Unknown History syringe (Stelara) Allergies Allergy/AdvReac Type Severity Reaction Status Date / Time Sulfa (Sulfonamide Allergy Unknown RASH Verified 03/03/25 03:38 Antibiotics) [facility] Family History Family History Sibling Hypothyroidism Mother Hypothyroidism Social History Social History Smoking status: Never smoker Substance use: never Gender identity (if verbalized by the patient): Female Spiritual care concerns: No Exam Narrative: APPEARANCE: Patient appears uncomfortable Head: atraumatic. EYES: EOMI, NOSE: Atraumatic NECK: Trachea midline RESPIRATORY: No increased rate of breathing clear to auscultation CARDIOVASCULAR: Tachycardic ABDOMINAL: Nondistended, diffusely tender, voluntary guarding MUSCULOSKELETAl: No obvious deformities NEURO: Alert. Moving 4/4 extremities SKIN:: Warm, dry. Normal color PSYCHIATRIC: Normal affect Course Vital Signs Vital signs: Vital Signs Temperature 97.6 F 03/03/25 02:55 Pulse Rate 89 03/03/25 02:55 Respiratory Rate 17 03/03/25 02:55 Blood Pressure 132/91 H 03/03/25 02:55 Pulse Oximetry 100 03/03/25 02:55 Oxygen Delivery Room Air 03/03/25 02:55 Temperature 97.6 F 03/03/25 02:55 Pulse Rate 89 03/03/25 02:55 Respiratory Rate 17 03/03/25 02:55 Blood Pressure 132/91 H 03/03/25 02:55 Pulse Oximetry 100 03/03/25 02:55 Oxygen Delivery Room Air 03/03/25 02:55 Medical Decision Making MDM Narrative Medical decision making narrative: -Course: 31-year-old female with history of Crohn's disease presenting with abdominal pain nausea vomiting. CT shows inflammation of the terminal ileum with resulting small bowel obstruction consistent with Crohn's disease. Case was discussed with Dr. Payan and Dr. Negron were on board for the patient being admitted here. An NG-tube was placed to low intermittent suction. She was given pain control, antiemetics and IV fluids. No fevers or evidence of infection. Antibiotics per inpatient team as needed. Patient will be admitted to the hospital for further management. Patient is on daily valacyclovir for herpes suppression while on Stelara. Patient requested to take her morning meds but is and NPO. dosing was converted to IV acyclovir by pharmacy. -DDX includes but is not limited to: Small-bowel obstruction, gastroenteritis, cholecystitis, appendicitis -Co-morbidities complicating care: Crohn's disease Vital Signs Vital Signs: Vital Signs Temperature 97.6 F 03/03/25 02:55 Pulse Rate 89 03/03/25 02:55 Respiratory Rate 03/03/25 02:55 Blood Pressure 132/91 H 03/03/25 02:55 Pulse Oximetry 100 03/03/25 02:55 Oxygen Delivery Room Air 03/03/25 02:55 Temperature 97.6 F 03/03/25 02:55 Pulse Rate 89 03/03/25 02:55 Respiratory Rate 17 03/03/25 02:55 Blood Pressure 132/91 H 03/03/25 02:55 Pulse Oximetry 100 03/03/25 02:55 Oxygen Delivery Room Air 03/03/25 02:55 Lab Data Labs: Lab Results 03/03/25 Range/Units 03:03 POC Urine HCG, Qual Negative (Negative) Discharge Plan Discharge Clinical Impression: Crohn's disease, SBO (small bowel obstruction), Herpes Patient Disposition: Still a Patient Condition: Stable Patient Language: Emirati Prescriptions: No Action valacyclovir [Valtrex] 500 mg Tablet 500 mg PO DAILY Stelara 45 mg/0.5 mL Syringe See Rx Instructions .ROUTE .COMPLEX Rx Instructions: 45 mg subcutaneously every 8 weeks PNV cmb#95-ferrous fumarate-FA [] 28 mg iron- 800 mcg Tablet 1 tablet PO DAILY ergocalciferol (vitamin D2) 1,250 mcg (50,000 unit) capsule dicyclomine 10 mg capsule ustekinumab [Stelara] 90 mg/mL syringe SUBCUT Follow-up/Referrals: PHYSICIAN NOT ON STAFF,NONSTAFF [Primary Care Provider] -
[2025-03-03 03:11] LABS: Basophils Percent Auto 0.3 % (0.2-1.2); Eosinophils Absolute Auto 0.3 K/mm3 (0-0.3); Eosinophils Percent Auto 2.5 % (0-4.4); Hematocrit 44.7 % (37.0-47.0); Hemoglobin 15.3 g/dL (12.0-15.0); Immature Granulocyte Absolute 0.03 K/mm3 (0.00-0.031); Immature Granulocyte Percent A 0.3 % (0-0.5); Lymphocytes Absolute Auto 0.69 K/mm3 (0.9-3.2); Lymphocytes Percent Auto 5.9 % (18.3-44.2); Mean Corpuscular HGB Conc 34.2 g/dl (32-36); Mean Corpuscular Hemoglobin 30.7 pg (26-34); Mean Corpuscular Volume 89.6 fl (80-100); Mean Platelet Volume 9.3 fl (7.4-10.4); Monocytes Absolute Auto 0.6 K/mm3 (0.1-0.6); Monocytes Percent Auto 4.7 % (2.6-8.5); Neutrophils Absolute Auto 10.1 K/mm3 (1.3-6.7); Neutrophils Percent Auto 86.3 % (45.5-73.1); Platelet Count Result 354 k/mm3 (150-375); Red Blood Count 4.99 M/mm3 (4.2-5.4); Red Cell Distribution Width 12.2 % (11.5-14.5); White Blood Count 11.7 K/mm3 (4.5-10.0)
[2025-03-03 03:24] LABS: Alanine Aminotransferase 23 U/L (6-35); Albumin Level 4.8 g/dL (3.5-5.1); Alkaline Phosphatase 77 U/L (38-126); Anion Gap 12 mmol/L (4-12); Aspartate Amino Transferase 33 U/L (14-36); Bilirubin,Total 0.7 mg/dL (0.2-1.3); Blood Urea Nitrogen 12 mg/dL (7-17); Calcium 9.7 mg/dL (8.4-10.2); Carbon Dioxide 24 mmol/L (22-30); Chloride 103 mmol/L (98-107); Estimated CRCL calculation 67 ml/min; Estimated Glomerular Filt Rate > 60; Glucose 126 mg/dL (65-110); Lipase 119 U/L (23-300); Potassium 3.6 mmol/L (3.4-5.0); Sodium 139 mmol/L (137-145)
[2025-03-03 03:26] LABS: Add Urine Microscopic? YES; Appearance Urine Cloudy (Clear); Bacteria Urine Rare /hpf; Bilirubin Urine Negative (Negative); Blood Urine Negative (Negative); Color Urine Dark Yellow (Yellow); Glucose Urine UA Negative (Negative); Hyaline Casts Urine Present /lpf; Ketones Urine 1+ mg/dL (Negative); Leukocyte Esterase Ur Trace LEU/UL (Negative); Mucus Urine Present /lpf; Need Manual Microscopic Reviewed; Nitrate Urine Negative (Negative); Protein Urine 1+ mg/dL (Negative); Specific Grav Ur 1.031 (1.001-1.035); Squamous Epithelial Cell Urine Few /hpf (Few); WBC Urine 0-5 /hpf (0-3); pH Urine 6.5 (5.0-9.0)
[2025-03-03] MEDS: HYDROmorphone HCL INJ (*CRX) 2 MG/ML VIAL 0.5 MG IV PUSH (03:28)
[2025-03-03] MEDS: DICYCLOMINE HCL INJ 20 MG/2 ML VIAL IM (03:28)
[2025-03-03] MEDS: SODIUM CHLORIDE 0.9% IV 2,000 ML 999 ML IV CONT (03:28)
[2025-03-03] MEDS: FAMOTIDINE 20 MG/2 ML VIAL IV PUSH ×2 (03:28→20:37)
[2025-03-03] MEDS: ONDANSETRON INJ 4 MG/2 ML VIAL IV PUSH ×2 (03:29→05:54)
--- OUTSIDE RECORDS SUMMARY | 2025-03-03 04:13 | XMS_ITS | Referral Summary ---
Author Organization [facility] Address [address] [place] [address] Care Team Providers Care Perinatal Specialist Name Role Phone Nomi Kelly MD Unavailable Antolin Danielson DO Primary Care Provide r Encounters Date Type Department Care Team Description 12/17/2024 Documentation [facility] Gastroenterology [address] [facility] 12th [place] [address] [place] [address] Sade Kate RN Treatment Plan Update (12/14/2024 rov) 12/14/2024 8:30 AM RESEARCH NUTRITIONIST Office Visit [facility] Gastroenterology [facility] Medical Office Building [address] [place] [address] Liana Redding NP Crohn's disease [...] 12/15/2024 Assessment & Plan (12/15/2024 2:00 PM RESEARCH NUTRITIONIST): The patient indicates that she her GI [...] 06/03/2019 Assessment & Plan (12/15/2024 2:00 PM RESEARCH NUTRITIONIST): We will offer her Prevnar 20 today. She is eligible for Shingrix given her immunosuppression. We would recommend that she continue close follow-up with her care team. Assessment & Plan (09/06/2019 3:24 PM RESEARCH NUTRITIONIST): High risk medications: As with all patients [...] immune Assessment & Plan (12/15/2024 2:02 PM RESEARCH NUTRITIONIST): The patient reports that she is no [...] Skyrizi. Assessment & Plan (09/06/2019 3:24 PM RESEARCH NUTRITIONIST): History of penetrating crohn's diagnosed 2015. Prior [...] Comments Blood Pressure 107/75 12/14/2024 8:25 AM RESEARCH NUTRITIONIST Pulse 76 12/14/2024 8:25 AM RESEARCH NUTRITIONIST Temperature 36.7 C (98.1 F) 09/06/2024 10:41 AM RESEARCH NUTRITIONIST Respiratory Rate 17 12/15/2023 10:50 AM RESEARCH NUTRITIONIST Oxygen Saturation 98% 12/14/2024 8:25 AM RESEARCH NUTRITIONIST Inhaled Oxygen Concentration - - Weight 55.3 kg (122 lb) 12/14/2024 8:25 AM RESEARCH NUTRITIONIST Height 162.6 cm (5' 4 ) 12/14/2024 8:25 AM RESEARCH NUTRITIONIST Body Mass Index 20.94 12/14/2024 8:25 AM RESEARCH NUTRITIONIST Plan of Treatment Not on file Procedures Procedure Name Priority Date/Time Associated Diagnosis Comments HEPATITIS C ANTIBODY Routine 03/11/2019 11:00 AM CDT Crohn's disease of small intestine with complication (HCC) High risk medication use from Last 3 Months or Most Recently Relevant to Health Maintenance Results * Hepatitis C antibody (03/11/2019 11:00 AM CDT) Hep C Ab Non-Reacti ve Non-Reacti ve [facility] Comment:Testing performed by : [facility], [facility], [place]., [address] Blood specimen (specimen) 03/11/2019 11:00 AM CDT 03/11/2019 1:21 PM CDT Narrative [facility] - 03/11/2019 2:07 PM CDT To be drawn through the [facility] infusion center when pt arrives for infusion 03/11. us Mandeep Pena MD PhD LAB MICROBIOLOGY - G ENERAL ORDERABLES Final Result [facility] [id number] [facility]. Department [place] [address] from Last 3 Months or Most Recently Relevant to Health Maintenance Insurance [facility] Advance Directives For more information, please contact: [phone] * Full Code (Latest Code Status on File) Date Activated Date Inactivated Comments 11/17/2023 11:50 AM 11/17/2023 6:58 PM * Full Code Date Activated Date Inactivated Comments 07/17/2018 9:43 AM 07/17/2018 2:15 PM Care Teams Perinatal Specialist Relationship Specialty Start Date End Date Antolin Danielson DO [address] [place] [address] PCP - General 05/01/20 Nomi Kelly MD 06/18/17
--- OUTSIDE RECORDS SUMMARY | 2025-03-03 04:13 | XMS_ITS | Encounter Summary ---
Author Organization [facility] Address [address] [place] [address] Phone Care Team Providers Care Coordinator Integrated Marketing Name Role Phone Nomi Kelly MD Unavailable [...] Time COVID: Suspected 10/09/2022 10/09/202210/0910/09/2022 9:26 PM TOOL SETTER APPRENTICE Influenza, adult 10/09/2022 10/09/2022 10/16/2022 3:05 AM TOOL SETTER APPRENTICE documented as of this encounter Care Teams Coordinator Integrated Marketing Relationship Specialty Start Date End Date Antolin Danielson DO [address] [place] [address] PCP - General 05/01/20 Nomi Kelly MD 06/18/17 documented as of this encounter
--- OUTSIDE RECORDS SUMMARY | 2025-03-03 04:13 | XMS_ITS | Clinical Summary ---
Author Organization [facility] Address [address] [place] [phone] Phone Care Team Providers Care Roll Edge Machine Operator Name Role Phone Unavailable Primary Care Provider [...]
--- OUTSIDE RECORDS SUMMARY | 2025-03-03 04:13 | XMS_ITS | Clinical Summary ---
Author Organization [facility] Address [address] [place] [address] Care Team Providers Care Electronic Health Records Specialist Name Role Phone Nomi Kelly MD [...] 12/15/2024 Assessment & Plan (12/15/2024 2:00 PM BLEACH TESTER): The patient indicates that she her GI [...] 06/03/2019 Assessment & Plan (12/15/2024 2:00 PM BLEACH TESTER): We will offer her Prevnar 20 today. She is eligible for Shingrix given her immunosuppression. We would recommend that she continue close follow-up with her care team. Assessment & Plan (09/06/2019 3:24 PM BLEACH TESTER): High risk medications: As with all patients [...] immune Assessment & Plan (12/15/2024 2:02 PM BLEACH TESTER): The patient reports that she is no [...] Skyrizi. Assessment & Plan (09/06/2019 3:24 PM BLEACH TESTER): History of penetrating crohn's diagnosed 2015. Prior [...] Type Department Care Team Description 12/17/2024 Documentation [facility] Gastroenterology [address] [facility] 12th [place] [address] [place] [address] Sade Kate RN Treatment Plan Update (12/14/2024 rov) 12/14/2024 8:30 AM BLEACH TESTER Office Visit [facility] Gastroenterology [address] [place] [address] Medical Office Building [address] [place] [address] Liana Redding, SETH Crohn's disease [...] Comments Blood Pressure 107/75 12/14/2024 8:25 AM BLEACH TESTER Pulse 76 12/14/2024 8:25 AM BLEACH TESTER Temperature 36.7 C (98.1 F) 09/06/2024 10:41 AM BLEACH TESTER Respiratory Rate 17 12/15/2023 10:50 AM BLEACH TESTER Oxygen Saturation 98% 12/14/2024 8:25 AM BLEACH TESTER Inhaled Oxygen Concentration - - Weight 55.3 kg (122 lb) 12/14/2024 8:25 AM BLEACH TESTER Height 162.6 cm (5' 4 ) 12/14/2024 8:25 AM BLEACH TESTER Body Mass Index 20.94 12/14/2024 8:25 AM BLEACH TESTER Plan of Treatment Health Maintenance Due Date [...] C Ab Non-Reacti ve Non-Reacti ve [facility] Comment:Testing performed by : [facility], [facility], [place]., [address] Blood specimen (specimen) 03/11/2019 11:00 AM CDT 03/11/2019 1:21 PM CDT Narrative [facility] - 03/11/2019 2:07 PM CDT To be drawn through the [facility] infusion center when pt arrives for infusion 03/11. Mandeep Pena MD PhD LAB MICROBIOLOGY - G ENERAL ORDERABLES Final Result [facility] [id number] [facility] Department [place] [address] from Last 3 Months or Most Recently Relevant to Health Maintenance Insurance [facility] [employer] Advance Directives For more information, please contact: [phone] * Full Code (Latest Code Status on File) Date Activated Date Inactivated Comments 11/17/2023 11:50 AM 11/17/2023 6:58 PM * Full Code Date Activated Date Inactivated Comments 07/17/2018 9:43 AM 07/17/2018 2:15 PM Care Teams Electronic Health Records Specialist Relationship Specialty Start Date End Date Antolin Danielson DO [address] [place] [address] PCP - General 05/01/20 oNmi Kelly MD 06/18/17
--- OUTSIDE RECORDS SUMMARY | 2025-03-03 04:13 | XMS_ITS | Clinical Summary ---
Author Organization [facility] Address [address] [place] [address] Care Team Providers Care Ski Top Trimmer Name Role Phone ArichristadimasleonilaAntolin Primary Care Provider [...] disease of small int estine with complication ([facility]) 03/03/2018 Overview (02/22/2021): Year of [...] (12+), MRNA, LNP-S, PF 08/01/2022 MODERNA COVID-19 (OIL WELL LOGGER KRYSTEN ALEXANDRE), MRNA, LNP-S, PF, 50 MCG/ 0.25 ML DOSE 09/27/2021 Pneumococcal (Pneumovax 23) 09/06/2019 Pneumococcal (Prevnar 13) 06/19/2017 Tdap (Generic) 03/20/2021 Family History Medical History Relation Comments Heart Disease Father irregular hb Father [place] Maternal Grandfather x3 Stroke Maternal Grandfather x3 CHF Maternal Grandmother Coronary artery disease Maternal Grandmother Heart Disease Maternal Grandmother Hypertension Maternal Grandmother ICD Maternal Grandmother [place] Maternal Grandmother [place] Maternal Uncle 1 Early Maternal Uncle 2 Heart attack at 43 Hypertension Mother Thyroid Disease Mother Coronary artery disease Paternal Grandfather [place] Paternal Grandfather tia Paternal Grandfather Osteoporosis Paternal [...] on file Legal Sex 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 Gender Identity Not on file Sexual Orientation [...] Description 07/07/2025 1:20 PM CDT Office Visit [facility] Family & Internal Medicine [address] [phone] Antolin Danielson, [address] [place] [address] Health Maintenance Due Date Last Done Comments Cervical Cancer Screening Pap with HPV Testing (Age 30 to 64) Every 5 Years 2016 Annual Physical 10/24/2023 10/24/2022 Cervical Cancer Screening Pap Smear (Age 30 to 64) Every 3 Years 09/19/2024 09/19/2021 Cervical Cancer Screening with HPV 09/19/2024 PHQ-2 (Physician Samish) 10/20/2024 07/05/2024 COVID-19 Vaccine ( season) 2025 [...] Most Recently Relevant to Health Maintenance Insurance [address] [facility] Care Teams Ski Top Trimmer Relationship Specialty Start Date End Date Antolin Danielson DO [address] [place] [address] PCP - General FAMILY PRACTICE 02/22/20
--- OUTSIDE RECORDS SUMMARY | 2025-03-03 04:13 | XMS_ITS | Encounter Summary ---
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 [place] [address] documented as of this encounter Visit Diagnoses Not on filedocumented in this encounter Additional Health Concerns Assessment Noted Time PHQ-9 Depression Total Score: 0 02/23/20 20 8:07 AM CDT documented as of this encounter Care Teams Diet Kitchen Cook Relationship Specialty Start Date End Date Antolin Danielson DO [address] [place] [id number] PCP - General FAMILY PRACTICE 02/22/20 documented as of this encounter
[2025-03-03] MEDS: LIDO 1%/EPINEPHRINE 1:100,000 20 ML VIAL 10 ML INFILTRATE (05:55)
[2025-03-03] MEDS: LACTATED RINGERS 1,000 ML 75 ML IV CONT (06:37)
--- NOTE | 2025-03-03 07:15 | ADMGEN ---
This patient, Yaquelin Robin, was admitted to Medical Room 250-01. Patient/family oriented to hospital policies and general routines including ID bracelet, bed and alarms, visiting hours, pain management, procedures, bathroom and other care routines, personal items, smoking policy, room service/diet, and visiting hours. Information on how to activate the Rapid Response Team has been discussed. Patient/Family are encouraged to report perceived risks to care and to ask questions if they do not understand what they are told or what they should do.
[2025-03-03] MEDS: DEXTROSE 5% IVPB ×3 (08:09→22:31)
[2025-03-03] MEDS: ACYCLOVIR SODIUM IVPB ×3 (08:09→22:31)
[2025-03-03] MEDS: WATER IVPB ×3 (08:09→22:31)
--- NOTE | 2025-03-03 08:46 | WPDGICN ---
Assessment and Plan Assessment and plan (1) Crohn's disease: Qualifiers: Gastrointestinal tract location: small intestine Digestive disease complication type: with intestinal obstruction Qualified Code(s): K50.012 - Crohn's disease of small intestine with intestinal obstruction Code(s): K50.90 - Crohn's disease, unspecified, without complications Status: Acute (2) SBO (small bowel obstruction): Code(s): K56.609 - Unspecified intestinal obstruction, unspecified as to partial versus complete obstruction Status: Acute (3) Nausea and vomiting: Qualifiers: Vomiting type: bilious vomiting Qualified Code(s): R11.14 - Bilious vomiting Code(s): R11.2 - Nausea with vomiting, unspecified Status: Acute (4) Abdominal bloating: Code(s): R14.0 - Abdominal distension (gaseous) Status: Acute Plan 1. Crohn's disease/SBO/nausea/vomiting/bloating: Per patient last colonoscopy performed 1-2 years ago which she states she was in remission. CT on admission showed wall thickening of a segment of mid to distal ileum compatible with active Crohn's disease with associated small bowel obstruction with dilation of upstream fluid-filled small bowel loops. She is also noted to have a small amount of pelvic ascites. Her primary pneumatic tester mechanic is Dr. Moya at [facility]. She has been seeing him every 6 months. Patient diagnosed with Crohn's disease 6-7 years ago with initial presentation of abdominal abscess and fistulas. She was previously on Remicade and other unnamed biologic. She is currently on Stelara which she has been taking for 4 years. Last injection February 19. Patient states her Crohn's disease has been well controlled on Stelara and she has not had any significant flares. Yesterday evening she started having a sharp epigastric pain along with abdominal bloating, nausea and vomiting. Symptoms did not improve with dicyclomine. It is symptoms have all but resolved since admission. NG tube in left naris to low intermittent suction. Patient complaining of painful swallowing secondary to NG tube. Prior to yesterday the patient was having no GI issues. She was having daily bowel movements that are formed and non urgent and denies any weight loss, rectal bleeding, change in bowel habits, fevers, or new joint pain. Continue supportive care with pain management and antiemetics care with opioids patient had her last Stelara injection February 19 so she will not require another dose while inpatient start methylprednisolone 40 mg daily No indication for antibiotics at this time unless requested by surgery but I do not anticipate the need for surgical intervention at this time continue famotidine Order placed for lozenges as patient complaining of throat pain secondary to NG tube Patient to follow-up with primary GI provider following discharge Thank you very much for allowing me to share in the care of this very nice patient. This report may have been done utilizing a voice recognition system. Attempts have been made to correct errors. However, there may be uncorrected grammatical, spelling, and recognition errors present. GI Consult Note Consult date/time: 03/03/25 08:46 Reason for consult: Crohn's and SBO HPI: Yaquelin Robin is a 39 year old female with Hx of Crohn' disease who presented to the ER today with complaints of abdominal pain, nausea, and vomiting. Admitted for Crohn's and SBO, which is what GI was consulted for. Patient's Heath was at bedside throughout the entire visit. Patient states that she started having sharp epigastric pain around 5:30 pm yesterday evening that was accompanied with nausea and vomiting. Patient states that her primary pneumatic tester mechanic is Dr. Moya at [facility]. She states she was diagnosed with Crohn's disease with initial presentation being fistulas and abscess. She has been on Stelara for 4 years and prior to that was on Remicade and another biologic but was unable to provide the name. She was never on oral treatment. Since having NG tube placed her abdominal pain, nausea and vomiting has resolved. She was previously having abdominal bloating which has improved but not resolved since admission. She denies any odynophagia, dysphagia, reflux, regurgitation, early satiety, unexplained weight loss or appetite loss. Prior to admission she was having daily bowel movements that are formed and non Urgent. Denies diarrhea, constipation, hematochezia, melena, fevers, or joint pains. She denies any NSAID, aspirin, or anticoagulant use. She is a nondrinker nonsmoker and denies marijuana use. Family history negative for CRC or IBD. ENDOSCOPY HISTORY: EGD: Patient has never had an EGD COLONOSCOPY: Per patient's last colonoscopy 1-[address] Moya, patient states that her colonoscopy was normal and she was in remission. Endoscopy records not available today's visit LABS AND STOOL STUDIES: Labs 03/03/2025: Sodium 139, potassium 3.6, BUN 12, creatinine 0.85, GFR >60, calcium 9.7 WBC 12, Hgb 15, Hct 45, MCV 90, platelets 354 Total bilirubin 0.7, AST 33, ALT 23, Alkaline Phos 77, albumin 4.8 IMAGING: CT abd/pelvis w/contrast 03/03/2025: Findings: Scans through the lung bases are unremarkable. The liver, spleen, pancreas, gallbladder, adrenals and kidneys are within normal limits. No evidence of aortic aneurysm. No lymphadenopathy. There is circumferential wall thickening of a segment of mid to distal ileum in the pelvis. There is distention of multiple small bowel loops proximal to this level. Large bowel are decompressed. Images through the pelvis were performed. Urinary bladder unremarkable. No adnexal mass seen. Small amount of pelvic ascites present. Impression: Wall thickening of a segment of mid to distal ileum, compatible with active Crohn's disease, with associated small bowel obstruction with dilatation of upstream fluid-filled small bowel loops. Small amount of pelvic ascites. Abdominal Xray 03/03/2025: IMPRESSION: 1: NG tube tip in the stomach. Review of Systems Constitutional: Constitutional: Reports as per HPI ENT: Reports as per HPI Comments: pain with swallowing secondary to NG tube. Patient requesting throat spray or lozenges Cardiovascular: Cardiovascular: Reports as per HPI, Denies chest pain and Denies dyspnea Respiratory: Respiratory: Denies cough and Denies dyspnea Gastrointestinal: Gastrointestinal: Reports as per HPI Musculoskeletal: Musculoskeletal: Reports as per HPI Integumentary/Breasts: Skin/Breast: Reports as per HPI Psychiatric: Psychiatric: Reports as per HPI Endocrine: Endocrine: Reports no additional endocrine complaints Hematologic/Lymphatic: Hematologic/Lymphatic: Reports no additional hematologic/lymphatic complaints [facility] Family History Family History Sibling Hypothyroidism Mother Hypothyroidism Social History Social History Smoking status: Never smoker Alcohol intake: never Substance use: never Do You Feel Safe in your Home?: Yes Lack of Transportation: No Lack of Food: Never True Current Housing: I Have Housing Concerned About Future Housing: No Difficulty Paying Gas/Electric Bills: No Difficulty Paying for Meds: No Currently Unemployed: No Education: High School Diploma/GED Difficulty w/ Childcare or Family Care: No Gender identity (if verbalized by the patient): Female Spiritual care concerns: No Meds Home Medications and Allergies Home Medications Medication Instructions Recorded Confirmed Type ustekinumab 45 mg/0.5 mL See Rx Instructions .Route .COMPLEX 05/10/21 03/03/25 History subcutaneous syringe (Stelara) valacyclovir 500 mg tablet 500 mg PO DAILY 05/10/21 03/03/25 History (Valtrex) cholecalciferol (vitamin D3) 25 25 mcg PO DAILY 03/03/25 03/03/25 History mcg (1,000 unit) capsule (Vitamin D3) dicyclomine 10 mg capsule 10 mg PO QID PRN abdominal pain 03/03/25 03/03/25 History ergocalciferol (vitamin D2) 1,250 50,000 unit PO WEEKLY 03/03/25 03/03/25 History mcg (50,000 unit) capsule ustekinumab 90 mg/mL subcutaneous 90 mg subcut .COMPLEX 03/03/25 03/03/25 History syringe (Stelara) Allergies Allergy/AdvReac Type Severity Reaction Status Date / Time Sulfa (Sulfonamide Allergy Unknown RASH Verified 03/03/25 07:56 Antibiotics) Vital Signs Vital Signs - 24 hr 03/03/25 02:55 03/03/25 02:57 03/03/25 03:01 Temperature 97.6 F Pulse Rate 89 93 100 Respiratory Rate 17 14 12 Blood Pressure 132/91 H 132/91 H 120/86 Pulse Oximetry 100 100 100 Oxygen Delivery Room Air 03/03/25 03:16 03/03/25 03:31 03/03/25 03:50 Temperature Pulse Rate 80 53 L 59 L Respiratory Rate 15 14 18 Blood Pressure 114/88 104/74 118/88 Pulse Oximetry 100 100 100 Oxygen Delivery 03/03/25 04:01 03/03/25 04:16 03/03/25 04:31 Temperature Pulse Rate 67 93 83 Respiratory Rate 17 17 14 Blood Pressure 113/71 129/71 114/77 Pulse Oximetry 95 100 100 Oxygen Delivery 03/03/25 04:46 03/03/25 05:01 03/03/25 05:16 Temperature Pulse Rate 67 69 90 Respiratory Rate 12 14 13 Blood Pressure 123/62 110/58 L 113/71 Pulse Oximetry 100 99 100 Oxygen Delivery 03/03/25 05:31 03/03/25 06:01 03/03/25 06:16 Temperature Pulse Rate 96 104 H 84 Respiratory Rate 13 18 12 Blood Pressure 121/77 135/92 H 125/104 H Pulse Oximetry 100 100 99 Oxygen Delivery 03/03/25 06:31 03/03/25 07:50 Temperature 96.9 F L Pulse Rate 102 H 72 Respiratory Rate 17 18 Blood Pressure 138/88 115/65 Pulse Oximetry 100 100 Oxygen Delivery Exam Const: General: cooperative, healthy appearing, comfortable, no acute distress and well developed Orientation/consciousness: oriented to person, oriented to place, oriented to time and patient oriented x3 HENMT: Head: normal to inspection, normocephalic and atraumatic Mouth: Yes Normal oral and palatal mucosa present and Yes moist mucous membranes Other: NG tube in left nare to LIS Eyes: General: appearance normal, both eyes and all related structures Conjunctivae: conjunctivae normal Sclera: sclerae normal Pupils: Equal, round and reactive pupils present Neck: Neck: normal visual inspection Chest: Chest palpation & inspection: normal inspection of the chest Resp: Effort & Inspection: normal respiratory effort and able to speak in complete sentences Auscultation: clear to auscultation bilaterally Cardio: Jugular venous distension: no JVD Rate: regular rate Rhythm: regular rhythm Heart sounds: S1 normal heart sound present and S2 normal heart sound present GI: GI Palp: Yes Soft to palpation, No Tenderness to palpation present (GI), No Guarding due to palpation present (GI) and Yes No hepatosplenomegaly present Auscultation: abnormal bowel sounds (hypoactive LLQ and RLQ bowel sounds) Rectal Exam: deferred Skin: General skin exam: normal color and no rashes or lesions noted Neuro: General: oriented to person, oriented to place, oriented to time and patient oriented x3 Cranial nerves: Yes Equal, round and reactive pupils present Speech: normal speech Extrem: General: normal to inspection and no clubbing, cyanosis or edema Psych: Appearance: grossly normal and well kempt Affect: normal affect Results Labs 03/03/25 03:05 03/03/25 03:05 Labs: Short CBC 03/03/25 Range/Units 03:05 WBC 11.7 H (4.5-10.0) K/mm3 Hgb 15.3 H D (12.0-15.0) g/dL Hct 44.7 (37.0-47.0) % Plt Count 354 (150-375) k/mm3 BMP 03/03/25 03:05 Sodium 139 Potassium 3.6 Chloride 103 Carbon Dioxide 24 BUN 12 Creatinine 0.85 Glucose 126 H Calcium 9.7 Liver Function 03/03/25 Range/Units 03:05 Total Bilirubin 0.7 (0.2-1.3) mg/dL AST 33 (14-36) U/L ALT 23 (6-35) U/L Alkaline Phosphatase 77 (38-126) U/L Albumin 4.8 (3.5-5.1) g/dL Urine 03/03/25 Range/Units 03:05 Urine Color Dark yellow (Yellow) Urine Appearance Cloudy H (Clear) Urine pH 6.5 (5.0-9.0) Ur Specific Theresa 1.031 (1.001-1.035) Urine Protein 1+ H (Negative) mg/dL Urine Glucose (UA) Negative (Negative) mg/dL
[2025-03-03] MEDS: BENZOCAINE/MENTHOL (*BKC) 18 EA LOZENGE 1 LOZENGE PO (11:07)
[2025-03-03] MEDS: methylPREDNISolone SOD SUCC 40 MG VIAL IV PUSH (11:08)
--- NOTE | 2025-03-03 12:04 | P.HP_ITS ---
H&P: HPI History of Present Illness Date/Time: 03/03/25 12:04 Chief Complaint: Abdominal Pain Narrative: ER-HPI narrative: This is a 39-year-old female with history of Crohn's disease presenting for abdominal pain. Pain started at 10 hours prior to arrival at 4:30 pm. Pain is a sharp spasm feeling that is diffuse throughout her abdomen, severe in intensity and can worse. She has had pain like this before in previous Crohn flares. It is associated with nausea vomiting. No diarrhea. No fevers. No chest pain or difficulty breathing. No urinary symptoms. Patient took dicyclomine without relief. Patient presented with abdominal pain and CT scan of abdomen showed wall thickening of a segment of mid to distal ileum, compatible with active Crohn's disease, with associated small bowel obstruction with dilatation of upstream fluid-filled small bowel loops. patient is placed on NG tube for decompression, patient stats feels litter better and was seen by GI, patient has flare up of her Crohn's disease and has been taking Stelara and seen by Dr. Moya at [facility] and patient stats her Crohn's disease is controlled until this flare up. Patient took her last Stelara injection on February 19. patient remain is placed on NPO and NG tube for intermittent suction, patient will be seen surgery service will monitor and further recommendations to follow. patient is present in room. Review of Systems Constitutional: Constitutional: Reports as per HPI ENT: Reports as per HPI Comments: pain with swallowing secondary to NG tube. Patient requesting throat spray or lozenges Cardiovascular: Cardiovascular: Reports as per HPI, Denies chest pain and Denies dyspnea Respiratory: Respiratory: Denies cough and Denies dyspnea Gastrointestinal: Gastrointestinal: Reports as per HPI Musculoskeletal: Musculoskeletal: Reports as per HPI Integumentary/Breasts: Skin/Breast: Reports as per HPI Psychiatric: Psychiatric: Reports as per HPI Endocrine: Endocrine: Reports no additional endocrine complaints Hematologic/Lymphatic: Hematologic/Lymphatic: Reports no additional hematologic/lymphatic complaints [facility] Family History Family History Sibling Hypothyroidism Mother Hypothyroidism Social History Social History Smoking status: Never smoker Alcohol intake: never Substance use: never Do You Feel Safe in your Home?: Yes Lack of Transportation: No Lack of Food: Never True Current Housing: I Have Housing Concerned About Future Housing: No Difficulty Paying Gas/Electric Bills: No Difficulty Paying for Meds: No Currently Unemployed: No Education: High School Diploma/GED Difficulty w/ Childcare or Family Care: No Gender identity (if verbalized by the patient): Female Spiritual care concerns: No Meds Home Medications and Allergies Home Medications Medication Instructions Recorded Confirmed Type ustekinumab 45 mg/0.5 mL See Rx Instructions .Route .COMPLEX 05/10/21 03/03/25 History subcutaneous syringe (Stelara) valacyclovir 500 mg tablet 500 mg PO DAILY 05/10/21 03/03/25 History (Valtrex) cholecalciferol (vitamin D3) 25 25 mcg PO DAILY 03/03/25 03/03/25 History mcg (1,000 unit) capsule (Vitamin D3) dicyclomine 10 mg capsule 10 mg PO QID PRN abdominal pain 03/03/25 03/03/25 History ergocalciferol (vitamin D2) 1,250 50,000 unit PO WEEKLY 03/03/25 03/03/25 History mcg (50,000 unit) capsule ustekinumab 90 mg/mL subcutaneous 90 mg subcut .COMPLEX 03/03/25 03/03/25 History syringe (Stelara) Allergies Allergy/AdvReac Type Severity Reaction Status Date / Time Sulfa (Sulfonamide Allergy Unknown RASH Verified 03/03/25 07:56 Antibiotics) Vital Signs Vital Signs - 24 hr 03/03/25 02:55 03/03/25 02:57 03/03/25 03:01 Temperature 36.4 C Pulse Rate 89 93 100 Respiratory Rate 17 14 12 Blood Pressure 132/91 H 132/91 H 120/86 Pulse Oximetry 100 100 100 Oxygen Delivery Room Air 03/03/25 03:16 03/03/25 03:31 03/03/25 03:50 Temperature Pulse Rate 80 53 L 59 L Respiratory Rate 15 14 18 Blood Pressure 114/88 104/74 118/88 Pulse Oximetry 100 100 100 Oxygen Delivery 03/03/25 04:01 03/03/25 04:16 03/03/25 04:31 Temperature Pulse Rate 67 93 83 Respiratory Rate 17 17 14 Blood Pressure 113/71 129/71 114/77 Pulse Oximetry 95 100 100 Oxygen Delivery 03/03/25 04:46 03/03/25 05:01 03/03/25 05:16 Temperature Pulse Rate 67 69 90 Respiratory Rate 12 14 13 Blood Pressure 123/62 110/58 L 113/71 Pulse Oximetry 100 99 100 Oxygen Delivery 03/03/25 05:31 03/03/25 06:01 03/03/25 06:16 Temperature Pulse Rate 96 104 H 84 Respiratory Rate 13 18 12 Blood Pressure 121/77 135/92 H 125/104 H Pulse Oximetry 100 100 99 Oxygen Delivery 03/03/25 06:31 03/03/25 07:50 03/03/25 11:20 Temperature 36.1 C L Pulse Rate 102 H 72 Respiratory Rate 17 18 Blood Pressure 138/88 115/65 Pulse Oximetry 100 100 99 Oxygen Delivery Room Air Exam Narrative: Patient is comfortable, NAD HEENT: NG tube in place LUNGS:CTA HEART: RR S1S2 ABD: BS+, Soft and nontender Lower extremities: no edema SKIN: nonjaundiced Neuro: grossly intact. H&P: Results Labs Labs: Short CBC 03/03/25 Range/Units 03:05 WBC 11.7 H (4.5-10.0) K/mm3 Hgb 15.3 H D (12.0-15.0) g/dL Hct 44.7 (37.0-47.0) % Plt Count 354 (150-375) k/mm3 BMP 03/03/25 03:05 Sodium 139 Potassium 3.6 Chloride 103 Carbon Dioxide 24 BUN 12 Creatinine 0.85 Glucose 126 H Calcium 9.7 Liver Function 03/03/25 Range/Units 03:05 Total Bilirubin 0.7 (0.2-1.3) mg/dL AST 33 (14-36) U/L ALT 23 (6-35) U/L Alkaline Phosphatase 77 (38-126) U/L Albumin 4.8 (3.5-5.1) g/dL Urine 03/03/25 Range/Units 03:05 Urine Color Dark yellow (Yellow) Urine Appearance Cloudy H (Clear) Urine pH 6.5 (5.0-9.0) Ur Specific Jerome 1.031 (1.001-1.035) Urine Protein 1+ H (Negative) mg/dL Urine Glucose (UA) Negative (Negative) mg/dL Assessment and Plan Assessment and plan (1) Crohn's disease: Qualifiers: Digestive disease complication type: with intestinal obstruction Gastrointestinal tract location: small intestine Qualified Code(s): K50.012 - Crohn's disease of small intestine with intestinal obstruction Code(s): K50.90 - Crohn's disease, unspecified, without complications Status: Acute (2) SBO (small bowel obstruction): Code(s): K56.609 - Unspecified intestinal obstruction, unspecified as to partial versus complete obstruction Status: Acute (3) Abdominal bloating: Code(s): R14.0 - Abdominal distension (gaseous) Status: Acute (4) Nausea and vomiting: Qualifiers: Vomiting type: bilious vomiting Qualified Code(s): R11.14 - Bilious vomiting Code(s): R11.2 - Nausea with vomiting, unspecified Status: Acute Plan Patient presented with abdominal pain and CT scan of abdomen showed wall thickening of a segment of mid to distal ileum, compatible with active Crohn's disease, with associated small bowel obstruction with dilatation of upstream fluid-filled small bowel loops. patient is placed on NG tube for decompression, patient stats feels litter better and was seen by GI, patient has flare up of her Crohn's disease and has been taking Stelara and seen by Dr. Moya at [facility] and patient stats her Crohn's disease is controlled until this flare up. Patient took her last Stelara injection on February 19. patient remain is placed on NPO and NG tube for intermittent suction, patient will be seen surgery service will monitor and further recommendations to follow. patient is present in room.
[2025-03-03] MEDS: LACTATED RINGERS 1,000 ML 125 ML IV CONT (18:53)
[2025-03-04] MEDS: LACTATED RINGERS 1,000 ML 125 ML IV CONT ×3 (03:30→22:14)
--- NOTE | 2025-03-04 04:30 | PC.NURSE ---
IV HUNG DURING COMPUTER DOWN TIME
[2025-03-04 05:27] LABS: Hematocrit 39.6 % (37.0-47.0); Hemoglobin 12.7 g/dL (12.0-15.0); Mean Corpuscular HGB Conc 32.1 g/dl (32-36); Mean Corpuscular Hemoglobin 30.2 pg (26-34); Mean Corpuscular Volume 94.1 fl (80-100); Mean Platelet Volume 9.7 fl (7.4-10.4); Platelet Count Result 279 k/mm3 (150-375); Red Blood Count 4.21 M/mm3 (4.2-5.4); Red Cell Distribution Width 12.1 % (11.5-14.5); White Blood Count 9.9 K/mm3 (4.5-10.0)
[2025-03-04 05:50] LABS: Alanine Aminotransferase 15 U/L (6-35); Albumin Level 3.6 g/dL (3.5-5.1); Alkaline Phosphatase 59 U/L (38-126); Anion Gap 6 mmol/L (4-12); Aspartate Amino Transferase 24 U/L (14-36); Bilirubin,Total 0.5 mg/dL (0.2-1.3); Blood Urea Nitrogen 6 mg/dL (7-17); Calcium 8.6 mg/dL (8.4-10.2); Carbon Dioxide 25 mmol/L (22-30); Chloride 108 mmol/L (98-107); Estimated CRCL calculation 68 ml/min; Estimated Glomerular Filt Rate > 60; Glucose 91 mg/dL (65-110); Potassium 3.7 mmol/L (3.4-5.0); Sodium 139 mmol/L (137-145)
[2025-03-04 06:00] VITALS: BP 113/76; PULSE 98; RESP 16; TEMP 36.3; O2SAT 99
[2025-03-04] MEDS: ACYCLOVIR SODIUM IVPB (06:22)
[2025-03-04] MEDS: DEXTROSE 5% IVPB (06:22)
[2025-03-04] MEDS: WATER IVPB (06:22)
--- NOTE | 2025-03-04 06:32 | PM.CNGS ---
Assessment and Plan Assessment and plan (1) Crohn's disease: Qualifiers: Digestive disease complication type: with intestinal obstruction Gastrointestinal tract location: small intestine Qualified Code(s): K50.012 - Crohn's disease of small intestine with intestinal obstruction Code(s): K50.90 - Crohn's disease, unspecified, without complications Status: Acute Assessment and Plan: Improving with steroid treatment. Management per Gastroenterology. (2) SBO (small bowel obstruction): Code(s): K56.609 - Unspecified intestinal obstruction, unspecified as to partial versus complete obstruction Status: Acute Assessment and Plan: Appears to have resolved. I doubt surgery will be needed. We will follow peripherally. History of Present Illness Consult details Consult date: 03/04/25 Reason for consult: abdominal pain Requesting physician: Masood Muse MD Narrative: Patient is a 39-year-old healthy woman with Crohn's disease for the last 7 years. She has always had ileitis. She came to the emergency room early a.m. yesterday with abdominal pain distension and imaging findings of Crohn's ileitis with small bowel obstruction. She has been treated with steroids by gastroenterology and is improving significantly. She no longer has pain. She is passing gas but has had no bowel movement as yet. This is the 1st time she has been admitted for a small-bowel obstruction. Review of Systems Review of Systems: All systems reviewed & are unremarkable except as noted in HPI and below (HPI) [facility] Family History Family History Sibling Hypothyroidism Mother Hypothyroidism Social History Social History Smoking status: Never smoker Alcohol intake: never Substance use: never Do You Feel Safe in your Home?: Yes Lack of Transportation: No Lack of Food: Never True Current Housing: I Have Housing Concerned About Future Housing: No Difficulty Paying Gas/Electric Bills: No Difficulty Paying for Meds: No Currently Unemployed: No Education: High School Diploma/GED Difficulty w/ Childcare or Family Care: No Gender identity (if verbalized by the patient): Female Spiritual care concerns: No Meds Home Medications and Allergies Home Medications Medication Instructions Recorded Confirmed Type ustekinumab 45 mg/0.5 mL See Rx Instructions .Route .COMPLEX 05/10/21 03/03/25 History subcutaneous syringe (Stelara) valacyclovir 500 mg tablet 500 mg PO DAILY 05/10/21 03/03/25 History (Valtrex) cholecalciferol (vitamin D3) 25 25 mcg PO DAILY 03/03/25 03/03/25 History mcg (1,000 unit) capsule (Vitamin D3) dicyclomine 10 mg capsule 10 mg PO QID PRN abdominal pain 03/03/25 03/03/25 History ergocalciferol (vitamin D2) 1,250 50,000 unit PO WEEKLY 03/03/25 03/03/25 History mcg (50,000 unit) capsule ustekinumab 90 mg/mL subcutaneous 90 mg subcut .COMPLEX 03/03/25 03/03/25 History syringe (Stelara) Allergies Allergy/AdvReac Type Severity Reaction Status Date / Time Sulfa (Sulfonamide Allergy Unknown RASH Verified 03/03/25 07:56 Antibiotics) Vital Signs Vital Signs - 24 hr 03/03/25 07:50 03/03/25 11:20 03/03/25 13:46 Temperature 36.1 C L 36.5 C Pulse Rate 72 75 Respiratory Rate 18 16 Blood Pressure 115/65 116/64 Pulse Oximetry 100 99 100 Oxygen Delivery Room Air 03/03/25 20:58 03/03/25 21:50 03/04/25 06:00 Temperature 36.6 C 36.3 C L Pulse Rate 72 98 Respiratory Rate 18 16 Blood Pressure 124/60 113/76 Pulse Oximetry 99 99 99 Oxygen Delivery Room Air Exam Const: General: comfortable, no acute distress, alert and awake HENMT: Head: normocephalic and atraumatic Mouth: Yes Normal oral and palatal mucosa present Eyes: Conjunctivae: conjunctivae normal Pupils: Equal, round and reactive pupils present EOM: EOMs intact bilaterally Neck: Neck: normal visual inspection, no lymphadenopathy and nontender Resp: Effort & Inspection: normal respiratory effort Auscultation: clear to auscultation bilaterally Cardio: Rate: regular rate Rhythm: regular rhythm Heart sounds: no gallops, no murmurs and no rubs GI: Inspection: normal to inspection, no abdominal wall ecchymosis, non-distended, scaphoid and no visible herniation GI Palp: Yes Soft to palpation, No Tenderness to palpation present (GI), No Hepatomegaly present, No Splenomegaly present, No Hernia present and No Palpable mass present Skin: Lesions: no lesions Rashes: no rashes Neuro: General: no focal motor deficits and CN's II-XI intact bilaterally Cranial nerves: Yes Equal, round and reactive pupils present, Yes Bilaterally intact EOM present, Yes facial symmetry and Yes Midline tongue present Speech: normal speech Motor exam (neuro): 5/5 motor strength present throughout and Motor abnormalities not present Extrem: General: no clubbing, cyanosis or edema and edema Psych: Affect: normal affect Thought process: Normal thought process present Insight: Good insight present (Psych) Results Labs 03/04/25 04:56 03/04/25 04:56 Labs: Abnormal lab results 03/04/25 Range/Units 04:56 Chloride 108 H (98-107) mmol/L BUN 6 L D (7-17) mg/dL Total Protein 6.0 L (6.3-8.2) g/dL Diabetes panel 03/04/25 Range/Units 04:56 Sodium 139 (137-145) mmol/L Potassium 3.7 (3.4-5.0) mmol/L Chloride 108 H (98-107) mmol/L Carbon Dioxide 25 (22-30) mmol/L BUN 6 L D (7-17) mg/dL Creatinine 0.83 (0.7-1.0) mg/dL Glucose 91 (65-110) mg/dL Calcium 8.6 (8.4-10.2) mg/dL AST 24 (14-36) U/L ALT 15 (6-35) U/L Alkaline Phosphatase 59 (38-126) U/L Total Protein 6.0 L (6.3-8.2) g/dL Albumin 3.6 (3.5-5.1) g/dL Calcium panel 03/04/25 Range/Units 04:56 Calcium 8.6 (8.4-10.2) mg/dL Albumin 3.6 (3.5-5.1) g/dL Pituitary panel 03/04/25 Range/Units 04:56 Sodium 139 (137-145) mmol/L Potassium 3.7 (3.4-5.0) mmol/L Chloride 108 H (98-107) mmol/L Carbon Dioxide 25 (22-30) mmol/L BUN 6 L D (7-17) mg/dL Creatinine 0.83 (0.7-1.0) mg/dL Glucose 91 (65-110) mg/dL Calcium 8.6 (8.4-10.2) mg/dL Adrenal panel 03/04/25 Range/Units 04:56 Sodium 139 (137-145) mmol/L Potassium 3.7 (3.4-5.0) mmol/L Chloride 108 H (98-107) mmol/L Carbon Dioxide 25 (22-30) mmol/L BUN 6 L D (7-17) mg/dL Creatinine 0.83 (0.7-1.0) mg/dL Glucose 91 (65-110) mg/dL Calcium 8.6 (8.4-10.2) mg/dL Total Bilirubin 0.5 (0.2-1.3) mg/dL AST 24 (14-36) U/L ALT 15 (6-35) U/L Alkaline Phosphatase 59 (38-126) U/L Total Protein 6.0 L (6.3-8.2) g/dL Albumin 3.6 (3.5-5.1) g/dL All other labs normal.
[2025-03-04 09:09] VITALS: RESP 16; O2SAT 99
[2025-03-04] MEDS: valACYclovir HCL 500 MG TABLET PO (09:09)
[2025-03-04] MEDS: FAMOTIDINE 20 MG/2 ML VIAL IV PUSH ×2 (09:09→20:47)
[2025-03-04] MEDS: CHOLECALCIFEROL 1,000 UNITS TABLET 1000 UNITS PO (09:09)
[2025-03-04] MEDS: methylPREDNISolone SOD SUCC 40 MG VIAL IV PUSH (09:09)
[2025-03-04 13:37] VITALS: BP 118/70; PULSE 84; RESP 18; TEMP 36.5; O2SAT 100
--- NOTE | 2025-03-04 15:05 | PM.IMPN ---
Progress Note: A&P Assessment and Plan (1) Crohn's disease: Qualifiers: Digestive disease complication type: with intestinal obstruction Gastrointestinal tract location: small intestine Qualified Code(s): K50.012 - Crohn's disease of small intestine with intestinal obstruction Code(s): K50.90 - Crohn's disease, unspecified, without complications Status: Acute (2) SBO (small bowel obstruction): Code(s): K56.609 - Unspecified intestinal obstruction, unspecified as to partial versus complete obstruction Status: Acute (3) Abdominal bloating: Code(s): R14.0 - Abdominal distension (gaseous) Status: Acute (4) Nausea and vomiting: Qualifiers: Vomiting type: bilious vomiting Qualified Code(s): R11.14 - Bilious vomiting Code(s): R11.2 - Nausea with vomiting, unspecified Status: Acute Plan Patient presented with abdominal pain and CT scan of abdomen showed wall thickening of a segment of mid to distal ileum, compatible with active Crohn's disease, with associated small bowel obstruction with dilatation of upstream fluid-filled small bowel loops. patient is placed on NG tube for decompression, patient stats feels litter better and was seen by GI, patient has flare up of her Crohn's disease and has been taking Stelara and seen by Dr. Moya at [facility] and patient stats her Crohn's disease is controlled until this flare up. Patient took her last Stelara injection on February 19. patient remain is placed on NPO and NG tube for intermittent suction. GI has been consulted. Patient has since then had her NG removed. Continues on IV fluid. Oral diet once okay is with GI service. General surgery has seen the patient as well. She will need to follow up with GI as an outpatient basis for further ongoing treatment as outpatient basis upon discharge. Continue on IV steroid as ordered Subjective Date/time seen: 03/04/25 15:05 Interval history: No overnight events. Abdominal pain has improved. No nausea. Had 1 episode of bowel movement today. Review of Systems Review of Systems: All systems reviewed & are unremarkable except as noted in HPI and below Exam Narrative: Patient is comfortable, NAD HEENT: NG tube in place LUNGS:CTA HEART: RR S1S2 ABD: BS+, Soft and nontender Lower extremities: no edema SKIN: nonjaundiced Neuro: grossly intact. Objective Data Vital Signs Vital Signs: Vital Signs - 24 hr 03/03/25 20:58 03/03/25 21:50 03/04/25 06:00 Temperature 97.8 F 97.3 F L Pulse Rate 72 98 Respiratory Rate 18 16 Blood Pressure 124/60 113/76 Pulse Oximetry 99 99 99 Oxygen Delivery Room Air 03/04/25 09:09 03/04/25 13:37 Temperature 97.7 F Pulse Rate 84 Respiratory Rate 16 18 Blood Pressure 118/70 Pulse Oximetry 99 100 Oxygen Delivery Room Air Intake/Output Intake/Output: Intake & Output 03/01/25 03/02/25 03/03/25 03/04/25 23:59 23:59 23:59 23:59 Intake Total 3767.4 2255.4 Balance 3767.4 2255.4 Meds/Results Medications: Active Medications Generic Name Dose Route Start Last Admin Trade Name Freq PRN Reason Stop Dose Admin Acetaminophen 650 mg 03/03/25 08:46 Acetaminophen 650 Mg Suppository RECTAL Q6H PRN Mild Pain (1-3) or Fever Benzocaine 1 lozenge 03/03/25 09:29 03/03/25 11:07 Benzocaine/Menthol (*Bkc) 18 Ea Lozenge PO 1 lozenge PRN PRN Administration Sore Throat Dicyclomine HCl 10 mg 03/03/25 08:56 Dicyclomine Hcl 10 Mg Capsule PO QID PRN abdominal pain Ergocalciferol 50,000 units 03/06/25 09:00 Ergocalciferol 50,000 Units Capsule PO WEEKLY BOBO Famotidine 20 mg 03/03/25 21:00 03/04/25 09:09 Famotidine 20 Mg/2 Ml Vial IV PUSH 20 mg Q12HR BOBO Administration Hydromorphone HCl 0.5 mg 03/03/25 08:46 Hydromorphone Hcl Inj (*Crx) 2 Mg/Ml Vial IV PUSH Q2H PRN Pain Rated 7-10 Lactated Ringer's 1,000 mls @ 125 mls/hr 03/03/25 06:10 03/04/25 14:14 Lr - Lactated Ringers Iv IV CONT 125 mls/hr .Q8H BOBO Administration Methylprednisolone Sodium Succinate 40 mg 03/03/25 10:35 03/04/25 09:09 Methylprednisolone Sod Succ 40 Mg Vial IV PUSH 40 mg DAILY BOBO Administration Ondansetron HCl 4 mg 03/03/25 08:46 Ondansetron Inj 4 Mg/2 Ml Vial IV PUSH Q6H PRN Nausea And Vomiting Valacyclovir HCl 500 mg 03/03/25 09:00 03/04/25 09:09 Valacyclovir Hcl 500 Mg Tablet PO 500 mg DAILY BOBO Administration Vitamin D 1,000 units 03/03/25 09:00 03/04/25 09:09 Cholecalciferol 1,000 Units Tablet PO 1,000 units DAILY BOBO Administration Radiology Results: ITS Impressions Abdomen/Pelvis CT 03/03/25 05:20 Impression: Wall thickening of a segment of mid to distal ileum, compatible with active Crohn's disease, with associated small bowel obstruction with dilatation of upstream fluid-filled small bowel loops. Small amount of pelvic ascites. Abdomen X-Ray 03/04/25 10:02 IMPRESSION: 1. Normal bowel gas pattern. Labs Labs: Laboratory Results - last 24 hr 03/04/25 04:56 WBC 9.9 RBC 4.21 Hgb 12.7 Hct 39.6 MCV 94.1 D MCH 30.2 MCHC 32.1 RDW 12.1 Plt Count 279 MPV 9.7 Sodium 139 Potassium 3.7 Chloride 108 H Carbon Dioxide 25 Anion Gap 6 BUN 6 L D Creatinine 0.83 Estim Creat Clear Calc 68 Estimated GFR > 60 Glucose 91 Calcium 8.6 Magnesium 2.0 Total Bilirubin 0.5 AST 24 ALT 15 Alkaline Phosphatase 59 Total Protein 6.0 L Albumin 3.6
--- NOTE | 2025-03-04 16:37 | P.PNGI_ITS ---
Progress Note: A&P Assessment and Plan (1) SBO (small bowel obstruction): Code(s): K56.609 - Unspecified intestinal obstruction, unspecified as to partial versus complete obstruction Status: Acute Assessment and Plan: resolved will advance to liquid diet (2) Crohn's disease: Qualifiers: Digestive disease complication type: with intestinal obstruction Gastrointestinal tract location: small intestine Qualified Code(s): K50.012 - Crohn's disease of small intestine with intestinal obstruction Code(s): K50.90 - Crohn's disease, unspecified, without complications Status: Acute Assessment and Plan: on stelara at home and she is established with GI doctor at [facility] on iv steroids and overall better hopefully go home tomorrow with steroid taper and close follow-up with her GI doctor to discuss next step (3) Nausea and vomiting: Qualifiers: Vomiting type: bilious vomiting Qualified Code(s): R11.14 - Bilious vomiting Code(s): R11.2 - Nausea with vomiting, unspecified Status: Acute Assessment and Plan: resolved start diet and hopefully home tomorrow (4) Abdominal bloating: Code(s): R14.0 - Abdominal distension (gaseous) Status: Acute (5) Abdominal pain: Code(s): R10.9 - Unspecified abdominal pain Status: Acute Subjective Date/time seen: 03/04/25 16:37 Interval history: she had BM today, no more nausea or abdominal pain and she is hungry Review of Systems Review of Systems: All systems reviewed & are unremarkable except as noted in HPI and below Exam Const: General: comfortable and no acute distress HENMT: Face/Nose/Sinus: Normal nares present Eyes: General: appearance normal, both eyes and all related structures Neck: Neck: no JVD Resp: Auscultation: clear to auscultation bilaterally Cardio: Rate: regular rate Rhythm: regular rhythm GI: Inspection: non-distended GI Palp: Yes Soft to palpation and No Tenderness to palpation present (GI) Auscultation: normal bowel sounds Skin: General skin exam: normal color Neuro: General: gait normal Speech: normal speech Extrem: General: normal to inspection Psych: Mental Status: mental status grossly normal Objective Data Vital Signs Vital Signs: Vital Signs - 24 hr 03/03/25 20:58 03/03/25 21:50 03/04/25 06:00 Temperature 97.8 F 97.3 F L Pulse Rate 72 98 Respiratory Rate 18 16 Blood Pressure 124/60 113/76 Pulse Oximetry 99 99 99 Oxygen Delivery Room Air 03/04/25 09:09 03/04/25 13:37 Temperature 97.7 F Pulse Rate 84 Respiratory Rate 16 18 Blood Pressure 118/70 Pulse Oximetry 99 100 Oxygen Delivery Room Air Intake/Output Intake/Output: Intake & Output 03/01/25 03/02/25 03/03/25 03/04/25 23:59 23:59 23:59 23:59 Intake Total 3767.4 2255.4 Balance 3767.4 2255.4 Meds/Results Medications: Active Medications Generic Name Dose Route Start Last Admin Trade Name Freq PRN Reason Stop Dose Admin Acetaminophen 650 mg 03/03/25 08:46 Acetaminophen 650 Mg Suppository RECTAL Q6H PRN Mild Pain (1-3) or Fever Benzocaine 1 lozenge 03/03/25 09:29 03/03/25 11:07 Benzocaine/Menthol (*Bkc) 18 Ea Lozenge PO 1 lozenge PRN PRN Administration Sore Throat Dicyclomine HCl 10 mg 03/03/25 08:56 Dicyclomine Hcl 10 Mg Capsule PO QID PRN abdominal pain Ergocalciferol 50,000 units 03/06/25 09:00 Ergocalciferol 50,000 Units Capsule PO WEEKLY BOBO Famotidine 20 mg 03/03/25 21:00 03/04/25 09:09 Famotidine 20 Mg/2 Ml Vial IV PUSH 20 mg Q12HR BOBO Administration Hydromorphone HCl 0.5 mg 03/03/25 08:46 Hydromorphone Hcl Inj (*Crx) 2 Mg/Ml Vial IV PUSH Q2H PRN Pain Rated 7-10 Lactated Ringer's 1,000 mls @ 125 mls/hr 03/03/25 06:10 03/04/25 14:14 Lr - Lactated Ringers Iv IV CONT 125 mls/hr .Q8H BOBO Administration Methylprednisolone Sodium Succinate 40 mg 03/03/25 10:35 03/04/25 09:09 Methylprednisolone Sod Succ 40 Mg Vial IV PUSH 40 mg DAILY BOBO Administration Ondansetron HCl 4 mg 05/15/25 08:46 Ondansetron Inj 4 Mg/2 Ml Vial IV PUSH Q6H PRN Nausea And Vomiting Valacyclovir HCl 500 mg 03/03/25 09:00 03/04/25 09:09 Valacyclovir Hcl 500 Mg Tablet PO 500 mg DAILY BOBO Administration Vitamin D 1,000 units 03/03/25 09:00 03/04/25 09:09 Cholecalciferol 1,000 Units Tablet PO 1,000 units DAILY BOBO Administration Radiology Results: ITS Impressions Abdomen/Pelvis CT 03/03/25 05:20 Impression: Wall thickening of a segment of mid to distal ileum, compatible with active Crohn's disease, with associated small bowel obstruction with dilatation of upstream fluid-filled small bowel loops. Small amount of pelvic ascites. Abdomen X-Ray 03/04/25 10:02 IMPRESSION: 1. Normal bowel gas pattern. Labs Labs: Laboratory Results - last 24 hr 03/04/25 04:56 WBC 9.9 RBC 4.21 Hgb 12.7 Hct 39.6 MCV 94.1 D MCH 30.2 MCHC 32.1 RDW 12.1 Plt Count 279 MPV 9.7 Sodium 139 Potassium 3.7 Chloride 108 H Carbon Dioxide 25 Anion Gap 6 BUN 6 L D Creatinine 0.83 Estim Creat Clear Calc 68 Estimated GFR > 60 Glucose 91 Calcium 8.6 Magnesium 2.0 Total Bilirubin 0.5 AST 24 ALT 15 Alkaline Phosphatase 59 Total Protein 6.0 L Albumin 3.6
[2025-03-04 21:38] VITALS: BP 124/81; PULSE 75; RESP 16; TEMP 36.6; O2SAT 100
[2025-03-05 04:39] LABS: Hemoglobin 12.1 g/dL (12.0-15.0); Mean Corpuscular HGB Conc 33.6 g/dl (32-36); Mean Corpuscular Hemoglobin 30.9 pg (26-34); Mean Corpuscular Volume 91.8 fl (80-100); Mean Platelet Volume 9.6 fl (7.4-10.4); Platelet Count Result 267 k/mm3 (150-375); Red Blood Count 3.92 M/mm3 (4.2-5.4); Red Cell Distribution Width 12.2 % (11.5-14.5); White Blood Count 9.1 K/mm3 (4.5-10.0)
[2025-03-05 04:48] LABS: Alanine Aminotransferase 15 U/L (6-35); Albumin Level 3.5 g/dL (3.5-5.1); Alkaline Phosphatase 47 U/L (38-126); Anion Gap 4 mmol/L (4-12); Aspartate Amino Transferase 24 U/L (14-36); Bilirubin,Total 0.5 mg/dL (0.2-1.3); Blood Urea Nitrogen 8 mg/dL (7-17); Calcium 8.6 mg/dL (8.4-10.2); Carbon Dioxide 28 mmol/L (22-30); Chloride 106 mmol/L (98-107); Estimated CRCL calculation 72 ml/min; Estimated Glomerular Filt Rate > 60; Glucose 88 mg/dL (65-110); Potassium 3.8 mmol/L (3.4-5.0); Sodium 138 mmol/L (137-145)
[2025-03-05 06:00] VITALS: BP 123/70; PULSE 76; RESP 16; TEMP 36.6; O2SAT 99
[2025-03-05] MEDS: LACTATED RINGERS 1,000 ML 125 ML IV CONT (06:15)
[2025-03-05 07:55] VITALS: RESP 16; O2SAT 99
[2025-03-05] MEDS: valACYclovir HCL 500 MG TABLET PO (08:05)
[2025-03-05] MEDS: CHOLECALCIFEROL 1,000 UNITS TABLET 1000 UNITS PO (08:05)
[2025-03-05] MEDS: FAMOTIDINE 20 MG/2 ML VIAL IV PUSH (08:05)
[2025-03-05] MEDS: methylPREDNISolone SOD SUCC 40 MG VIAL IV PUSH (08:06)
--- NOTE | 2025-03-05 11:32 | P.PNIM_ITS ---
Progress Note: A&P Assessment and Plan (1) Crohn's disease: Qualifiers: Digestive disease complication type: with intestinal obstruction Gastrointestinal tract location: small intestine Qualified Code(s): K50.012 - Crohn's disease of small intestine with intestinal obstruction Code(s): K50.90 - Crohn's disease, unspecified, without complications Status: Acute (2) SBO (small bowel obstruction): Code(s): K56.609 - Unspecified intestinal obstruction, unspecified as to partial versus complete obstruction Status: Acute (3) Abdominal bloating: Code(s): R14.0 - Abdominal distension (gaseous) Status: Acute (4) Nausea and vomiting: Qualifiers: Vomiting type: bilious vomiting Qualified Code(s): R11.14 - Bilious vomiting Code(s): R11.2 - Nausea with vomiting, unspecified Status: Acute Plan Patient presented with abdominal pain and CT scan of abdomen showed wall thickening of a segment of mid to distal ileum, compatible with active Crohn's disease, with associated small bowel obstruction with dilatation of upstream fluid-filled small bowel loops. patient is placed on NG tube for decompression, patient stats feels litter better and was seen by GI, patient has flare up of her Crohn's disease and has been taking Stelara and seen by Dr. Moya at [facility] and patient stats her Crohn's disease is controlled until this flare up. Patient took her last Stelara injection on February 19. patient remain is placed on NPO and NG tube for intermittent suction. GI has been consulted. Patient has since then had her NG removed. Continues on IV fluid. Has been started on oral diet which she has been tolerating well. General surgery has seen the patient as well. She will need to follow up with GI as an outpatient basis for further ongoing treatment as outpatient basis upon discharge. Continue on IV steroid as ordered which will be switched to oral steroid taper as would be recommended by GI. Subjective Date/time seen: 03/05/25 11:32 Interval history: No overnight events. Denies any abdominal pain. Tolerating full liquid diet. Had 2 bowel movement today and 2 yesterday. Review of Systems Review of Systems: All systems reviewed & are unremarkable except as noted in HPI and below Exam Narrative: Patient is comfortable, NAD HEENT: NG tube in place LUNGS:CTA HEART: RR S1S2 ABD: BS+, Soft and nontender Lower extremities: no edema SKIN: nonjaundiced Neuro: grossly intact. Objective Data Vital Signs Vital Signs: Vital Signs - 24 hr 03/04/25 13:37 03/04/25 21:38 03/05/25 06:00 Temperature 97.7 F 97.9 F 98 F Pulse Rate 84 75 76 Respiratory Rate 18 16 16 Blood Pressure 118/70 124/81 123/70 Pulse Oximetry 100 100 99 Oxygen Delivery 03/05/25 07:55 Temperature Pulse Rate Respiratory Rate 16 Blood Pressure Pulse Oximetry 99 Oxygen Delivery Room Air Intake/Output Intake/Output: Intake & Output 03/02/25 03/03/25 03/04/25 03/05/25 23:59 23:59 23:59 23:59 Intake Total 3767.4 3735.4 1783.8 Balance 3767.4 3735.4 1783.8 Meds/Results Medications: Active Medications Generic Name Dose Route Start Last Admin Trade Name Freq PRN Reason Stop Dose Admin Acetaminophen 650 mg 03/03/25 08:46 Acetaminophen 650 Mg Suppository RECTAL Q6H PRN Mild Pain (1-3) or Fever Benzocaine 1 lozenge 03/03/25 09:29 03/03/25 11:07 Benzocaine/Menthol (*Bkc) 18 Ea Lozenge PO 1 lozenge PRN PRN Administration Sore Throat Dicyclomine HCl 10 mg 03/03/25 08:56 Dicyclomine Hcl 10 Mg Capsule PO QID PRN abdominal pain Ergocalciferol 50,000 units 03/06/25 09:00 Ergocalciferol 50,000 Units Capsule PO WEEKLY BOBO Famotidine 20 mg 03/03/25 21:00 03/05/25 08:05 Famotidine 20 Mg/2 Ml Vial IV PUSH 20 mg Q12HR BOBO Administration Hydromorphone HCl 0.5 mg 03/03/25 08:46 Hydromorphone Hcl Inj (*Crx) 2 Mg/Ml Vial IV PUSH Q2H PRN Pain Rated 7-10 Lactated Ringer's 1,000 mls @ 125 mls/hr 03/03/25 06:10 03/05/25 08:12 Lr - Lactated Ringers Iv IV CONT 0 mls/hr .Q8H BOBO Infusion Methylprednisolone Sodium Succinate 40 mg 03/03/25 10:35 03/05/25 08:06 Methylprednisolone Sod Succ 40 Mg Vial IV PUSH 40 mg DAILY BOBO Administration Ondansetron HCl 4 mg 03/03/25 08:46 Ondansetron Inj 4 Mg/2 Ml Vial IV PUSH Q6H PRN Nausea And Vomiting Valacyclovir HCl 500 mg 03/03/25 09:00 03/05/25 08:05 Valacyclovir Hcl 500 Mg Tablet PO 500 mg DAILY BOBO Administration Vitamin D 1,000 units 03/03/25 09:00 03/05/25 08:05 Cholecalciferol 1,000 Units Tablet PO 1,000 units DAILY BOBO Administration Radiology Results: ITS Impressions Abdomen/Pelvis CT 03/03/25 05:20 Impression: Wall thickening of a segment of mid to distal ileum, compatible with active Crohn's disease, with associated small bowel obstruction with dilatation of upstream fluid-filled small bowel loops. Small amount of pelvic ascites. Abdomen X-Ray 03/05/25 11:06 IMPRESSION: 1. Normal bowel gas pattern. Labs Labs: Laboratory Results - last 24 hr 03/05/25 04:12 WBC 9.1 RBC 3.92 L Hgb 12.1 Hct 36.0 L MCV 91.8 MCH 30.9 MCHC 33.6 RDW 12.2 Plt Count 267 MPV 9.6 Sodium 138 Potassium 3.8 Chloride 106 Carbon Dioxide 28 Anion Gap 4 BUN 8 Creatinine 0.77 Estim Creat Clear Calc 72 Estimated GFR > 60 Glucose 88 Calcium 8.6 Magnesium 2.0 Total Bilirubin 0.5 AST 24 ALT 15 Alkaline Phosphatase 47 Total Protein 6.0 L Albumin 3.5
--- NOTE | 2025-03-05 12:54 | PM.DS ---
DS: Admitting Diagnosis Discharge Date 03/05/2025 Admitting Diagnosis Abdominal pain DS: Discharge Diagnosis Discharge Diagnosis (1) Crohn's disease: Qualifiers: Digestive disease complication type: with intestinal obstruction Gastrointestinal tract location: small intestine Qualified Code(s): K50.012 - Crohn's disease of small intestine with intestinal obstruction Code(s): K50.90 - Crohn's disease, unspecified, without complications Status: Acute (2) SBO (small bowel obstruction): Code(s): K56.609 - Unspecified intestinal obstruction, unspecified as to partial versus complete obstruction Status: Acute (3) Abdominal bloating: Code(s): R14.0 - Abdominal distension (gaseous) Status: Acute (4) Nausea and vomiting: Qualifiers: Vomiting type: bilious vomiting Qualified Code(s): R11.14 - Bilious vomiting Code(s): R11.2 - Nausea with vomiting, unspecified Status: Acute DS: Summary Hospital Course Hospital Course: Patient presented with abdominal pain and CT scan of abdomen showed wall thickening of a segment of mid to distal ileum, compatible with active Crohn's disease, with associated small bowel obstruction with dilatation of upstream fluid-filled small bowel loops. patient is placed on NG tube for decompression, patient stats feels litter better and was seen by GI, patient has flare up of her Crohn's disease and has been taking Stelara and seen by Dr. Moya at [facility] and patient stats her Crohn's disease is controlled until this flare up. Patient took her last Stelara injection on February 19. patient remain is placed on NPO and NG tube for intermittent suction. GI has been consulted. Patient has since then had her NG removed. Continues on IV fluid. Has been started on oral diet which she has been tolerating well. General surgery has seen the patient as well. She will need to follow up with GI as an outpatient basis for further ongoing treatment as outpatient basis upon discharge. Continue on IV steroid as ordered which will be switched to oral steroid taper as would be recommended by GI. 30 mg daily taper 5 mg every week until follow-up with GI. Time Spent with Patient Time attestation: Total time spent providing and/or coordinating discharge services: 35 minutes Exam Narrative: Patient is comfortable, NAD HEENT: NG tube in place LUNGS:CTA HEART: RR S1S2 ABD: BS+, Soft and nontender Lower extremities: no edema SKIN: nonjaundiced Neuro: grossly intact. DS: Data Data Completed and Pending Labs on day of discharge: Labs from last 24 hours 03/05/25 04:12 WBC 9.1 RBC 3.92 L Hgb 12.1 Hct 36.0 L MCV 91.8 MCH 30.9 MCHC 33.6 RDW 12.2 Plt Count 267 MPV 9.6 Sodium 138 Potassium 3.8 Chloride 106 Carbon Dioxide 28 Anion Gap 4 BUN 8 Creatinine 0.77 Estim Creat Clear Calc 72 Estimated GFR > 60 Glucose 88 Calcium 8.6 Magnesium 2.0 Total Bilirubin 0.5 AST 24 ALT 15 Alkaline Phosphatase 47 Total Protein 6.0 L Albumin 3.5 Imaging Radiologist's impression: ITS Impressions Abdomen/Pelvis CT 03/03/25 05:20 Impression: Wall thickening of a segment of mid to distal ileum, compatible with active Crohn's disease, with associated small bowel obstruction with dilatation of upstream fluid-filled small bowel loops. Small amount of pelvic ascites. Abdomen X-Ray 03/03/25 06:09 IMPRESSION: 1: NG tube tip in the stomach. Abdomen X-Ray 03/04/25 10:02 IMPRESSION: 1. Normal bowel gas pattern. Abdomen X-Ray 03/05/25 11:06 IMPRESSION: 1. Normal bowel gas pattern. Discharge Plan Discharge Attending physician on discharge: Everton Price Consulting providers: Pankaj Matson Discharging Clinician: Everton Price Anticipated Discharge Date/Time: 03/05/25 12:55 Patient Disposition: Home Activity: as tolerated Diet: low fiber Discharge Instructions: Follow-up with GI as soon as possible. Call to make an appointment Patient Instructions: Antibiotic Form, Low Fiber Diet (DC) Patient Language: Yakut Stand Alone Forms: General Discharge Information Follow-up/Referrals: Jagjit,DO Antolin [Primary Care Provider] - 1 Week Discharge Medications: New prednisone 5 mg tablet 5 mg PO DIRECTED Qty: 147 0RF Rx Instructions: see taper instructions take 30 mg daily x 7 days then 25 mg daily x 7 days then 20 mg daily x 7 days then 15 mg daily x 7 days then 10 mg daily x 7 days then 5 mg daily x 7 days Continued valacyclovir [Valtrex] 500 mg Tablet 500 mg PO DAILY ustekinumab [Stelara] 45 mg/0.5 mL Syringe See Rx Instructions .ROUTE .COMPLEX Rx Instructions: 45 mg subcutaneously every 8 weeks ergocalciferol (vitamin D2) 1,250 mcg (50,000 unit) capsule 50,000 unit PO WEEKLY dicyclomine 10 mg capsule 10 mg PO QID PRN (Reason: abdominal pain) ustekinumab [Stelara] 90 mg/mL syringe 90 mg SUBCUT .COMPLEX Rx Instructions: 90 mg subcutaneously every 6 weeks; cholecalciferol (vitamin D3) [Vitamin D3] 25 mcg (1,000 unit) capsule 25 mcg PO DAILY Date of admission: 03/03/25 06:07 Primary Care Provider: Jagjit,Antolin Admitting Provider: Khadar Lowe Attending physician on admission: Khadar Lowe Condition: Stable
--- NOTE | 2025-03-05 13:29 | P.PNGI_ITS ---
Progress Note: A&P Assessment and Plan (1) Crohn's disease: Qualifiers: Digestive disease complication type: with intestinal obstruction Gastrointestinal tract location: small intestine Qualified Code(s): K50.012 - Crohn's disease of small intestine with intestinal obstruction Code(s): K50.90 - Crohn's disease, unspecified, without complications Status: Acute Assessment and Plan: The patient is now tolerating a full liquid diet. She feels well, no nausea vomiting or abdominal pain. She can be discharged on a steroid taper, starting with prednisone 30 mg once a day, decreasing 5 mg each week until she gets to see her GI doctor at [facility]. She received her latest Stelara dose on 02/19/2025, therefore her next dose will be in 6 weeks. (2) SBO (small bowel obstruction): Code(s): K56.609 - Unspecified intestinal obstruction, unspecified as to partial versus complete obstruction Status: Acute Subjective Date/time seen: 03/05/25 13:29 Objective Data Vital Signs Vital Signs: Vital Signs - 24 hr 03/04/25 13:37 03/04/25 21:38 03/05/25 06:00 Temperature 97.7 F 97.9 F 98 F Pulse Rate 84 75 76 Respiratory Rate 18 16 16 Blood Pressure 118/70 124/81 123/70 Pulse Oximetry 100 100 99 Oxygen Delivery 03/05/25 07:55 Temperature Pulse Rate Respiratory Rate 16 Blood Pressure Pulse Oximetry 99 Oxygen Delivery Room Air Intake/Output Intake/Output: Intake & Output 03/02/25 03/03/25 03/04/25 03/05/25 23:59 23:59 23:59 23:59 Intake Total 3767.4 3735.4 2022.8 Balance 3767.4 3735.4 2022.8 Meds/Results Medications: Active Medications Generic Name Dose Route Start Last Admin Trade Name Freq PRN Reason Stop Dose Admin Acetaminophen 650 mg 03/03/25 08:46 Acetaminophen 650 Mg Suppository RECTAL Q6H PRN Mild Pain (1-3) or Fever Benzocaine 1 lozenge 03/03/25 09:29 03/03/25 11:07 Benzocaine/Menthol (*Bkc) 18 Ea Lozenge PO 1 lozenge PRN PRN Administration Sore Throat Dicyclomine HCl 10 mg 03/03/25 08:56 Dicyclomine Hcl 10 Mg Capsule PO QID PRN abdominal pain Ergocalciferol 50,000 units 03/06/25 09:00 Ergocalciferol 50,000 Units Capsule PO WEEKLY BOBO Famotidine 20 mg 03/03/25 21:00 03/05/25 08:05 Famotidine 20 Mg/2 Ml Vial IV PUSH 20 mg Q12HR BOBO Administration Hydromorphone HCl 0.5 mg 03/03/25 08:46 Hydromorphone Hcl Inj (*Crx) 2 Mg/Ml Vial IV PUSH Q2H PRN Pain Rated 7-10 Methylprednisolone Sodium Succinate 40 mg 03/03/25 10:35 03/05/25 08:06 Methylprednisolone Sod Succ 40 Mg Vial IV PUSH 40 mg DAILY BOBO Administration Ondansetron HCl 4 mg 03/03/25 08:46 Ondansetron Inj 4 Mg/2 Ml Vial IV PUSH Q6H PRN Nausea And Vomiting Valacyclovir HCl 500 mg 03/03/25 09:00 03/05/25 08:05 Valacyclovir Hcl 500 Mg Tablet PO 500 mg DAILY BOBO Administration Vitamin D 1,000 units 03/03/25 09:00 03/05/25 08:05 Cholecalciferol 1,000 Units Tablet PO 1,000 units DAILY BOBO Administration Radiology Results: ITS Impressions Abdomen/Pelvis CT 03/03/25 05:20 Impression: Wall thickening of a segment of mid to distal ileum, compatible with active Crohn's disease, with associated small bowel obstruction with dilatation of upstream fluid-filled small bowel loops. Small amount of pelvic ascites. Abdomen X-Ray 03/05/25 11:06 IMPRESSION: 1. Normal bowel gas pattern. Labs Labs: Laboratory Results - last 24 hr 03/05/25 04:12 WBC 9.1 RBC 3.92 L Hgb 12.1 Hct 36.0 L MCV 91.8 MCH 30.9 MCHC 33.6 RDW 12.2 Plt Count 267 MPV 9.6 Sodium 138 Potassium 3.8 Chloride 106 Carbon Dioxide 28 Anion Gap 4 BUN 8 Creatinine 0.77 Estim Creat Clear Calc 72 Estimated GFR > 60 Glucose 88 Calcium 8.6 Magnesium 2.0 Total Bilirubin 0.5 AST 24 ALT 15 Alkaline Phosphatase 47 Total Protein 6.0 L Albumin 3.5
== END 2025-03-05 13:55 | disposition home or self-care (01) | DRG 387 ==
LOC: ANHED 06:07 → ANH2MED 06:50
PROVIDERS: Family Medicine; Admitting Provider General Practice; Emergency Provider Emergency Medicine; PCP Student in an Organized Health Care Education/Training Program; Visit Provider Internal Medicine
DX: K50.012 Crohn's disease of small intestine with intestinal obstruction (principal); R11.14 Bilious vomiting; Z79.620 Long term (current) use of immunosuppressive biologic
CPT/HCPCS: 36415; 74018; 74177; 80053; 81001; 81025; 83690; 83735; 85025; 85027; 96361; 96372; 96374; 96375; 96376; 99285; A9270; J0133; J0500; J1171; J2004; J2405; J2919; J7030; J7060; J7120; Q9967